=== PATIENT | female | born 1990 | race Caucasian/White ===

== ENCOUNTER 2024-07-21 07:30 | Outpatient (RCR) | payer OTHER, SELFPAY ==
--- NOTE | 2024-01-14 16:29 | PT.OIE ---
Current Diagnoses Unspecified dyspareunia (01/14/24) Past Surgical History (Last Updated 07/27/23 @ 21:03 by Marva Garcia) Anesthesia [place] teeth removed (~09/2009) Visit Care Team Role Provider Type Tara Bernal DO Attending Provider Non-Staff Family Provider Primary Care Provider Referring Provider Specialty: Family Practice Address: [address] [place] [address], [place], [address] Fax: Email: Physical Therapy Initial Evaluation PT-OP-A Visit Information Start: 01/11/24 17:27 Freq: Status: Active Protocol: Document 01/14/24 08:20 LRN (Rec: 01/14/24 09:02 LRN [id number]) Out-Patient Physical Therapy Visit Information Visit Information Visit Type Initial Evaluation Visit Start Time 08:20 Visit Stop Time 08:55 Visit Number 11/09 Evaluation Information Evaluation Date 01/14/24 PT-OP-B Current Condition Start: 01/11/24 17:27 Freq: Status: Active Protocol: Document 01/14/24 08:20 LRN (Rec: 01/14/24 09:02 LRN [id number]) Current Condition History of Current Condition Onset Date 2 yrs ago Current Complaints Painful intercourse. History of Current Condition Pain during intercourse with spouse. Pt had no prior history of intercourse before . Has referral to see gyno Dr. Marrero and was told ms needing to relax. 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 Prior Treatments and Tests None Developmental History Developmental History None Treatment Goals Patient/Caregiver Goals Pt goal with therapy: No pain with intercourse. Pt agreeable to a HEP and self care education. Personal Factors Other Personal Factors That May Effect None. Therapy/Recovery PT-OP-C Subjective Start: 01/11/24 17:27 Freq: Status: Active Protocol: Document 01/14/24 08:20 LRN (Rec: 01/14/24 09:02 LRN [id number]) Patient Questionnaires Pelvic Pain and Urgency/Frequency Patient Symptom Scale Pelvic Pain Score 8 PT-OP-I Pelvic Floor Start: 01/11/24 17:27 Freq: Status: Active Protocol: Document 01/14/24 08:20 LRN (Rec: 01/14/24 09:02 LRN [id number]) Pelvic Floor Assessment Urine Other Urinary Symptoms None Bowel Bowel Movement Frequency 1/day [place] Stool Chart Comments Type 4 Pelvic Clock Pelvic Clock 12-3 Tenderness,Tightness Pelvic Clock 3-6 Tenderness,Tightness Pelvic Clock 6-9 Tenderness,Tightness Pelvic Clock 9-12 Tenderness,Tightness Pelvic Clock Other Redness at entire labia minora Prolapse Prolapse Comments Pt not able to tolerate digital palpation to assess for prolapse. Perineal Descent Resting Absent Bearing Absent Comments Pelvic Floor Comments Posterior PF assesment per anal sphincter palpation: Quick Contractions: 2 reps prior to fatigue. Long Hold contractions: Muscle endurance 2 secs. PT-OP-J Posture/Palpation/Skin Start: 01/11/24 17:27 Freq: Status: Active Protocol: Document 01/14/24 08:20 LRN (Rec: 01/14/24 09:02 LRN [id number]) Posture Evaluation Position Standing Head/C-Spine Posture Neutral Position T-Spine Posture Neutral L-Spine Posture Neutral Shoulder Posture Neutral Arm Posture (L) Neutral,(R) Neutral Pelvis Posture Anteriorly Tilted Weight Distribution Balanced Knee Posture (L) Neutral,(R) Neutral PT-OP-K Range of Motion Start: 01/11/24 17:27 Freq: Status: Active Protocol: Document 01/14/24 08:20 LRN (Rec: 01/14/24 09:02 LRN [id number]) Lumbar Spine Range of Motion Lumbar Spine Active Degrees Testing Position Standing Flexion 83 Extension 20 Rotation Left 20 Rotation Right 20 Lateral Flexion Left 30 Lateral Flexion Right 25 ROM Limitations Soft Tissue Tightness Hip Goniometric Range of Motion Hip Right Passive Testing Position Supine Abduction 30 Internal Rotation 25 External Rotation 45 Left Passive Testing Position Supine Abduction 25 Internal Rotation 10 External Rotation 50 Comments decreased active IR PT-OP-M Strength Start: 01/11/24 17:27 Freq: Status: Active Protocol: Document 01/14/24 08:20 LRN (Rec: 01/14/24 09:02 LRN [id number]) Trunk Strength Trunk Manual Muscle Testing Core Stabilization Mild trunk rotation weakness demonstrated with LE MMT. Hip Strength Hip Manual Muscle Testing Right Comments LE strength is 5/5 Left External Rotation 4+ Good+ Comments LE strength is 5/5 except as indicated above. PT-OP-Q Treatments Start: 01/11/24 17:27 Freq: Status: Active Protocol: Document 01/14/24 08:20 LRN (Rec: 01/14/24 09:02 LRN [id number]) Therapeutic Exercises Supine Exercises Lateral Hip stretch Supine Exercise Name Lateral Hip stretch Side left Reps/Minutes 1' Piriformis stretch Supine Exercise Name ankle over knee>ktc and knee to opp shoulder. Side left Reps/Minutes 1' Self-Care/Home Management Treatment Education Patient Education Home Exercise Program Other Education Discussed results of evaluation, attendance compliance, goals, and plan of care (POC). Pt agreeable to attendance compliance, goals and POC. Activities Self-Care/Home Management Activities Issued & reviewed HEP: Diaphragmatic Breathing for relaxatioin and Hip stretches: (L>R) Piriformis and lateral hip. PT-OP-T Assessment and Plan Start: 01/11/24 17:27 Freq: Status: Active Protocol: Document 01/14/24 08:20 LRN (Rec: 01/14/24 09:02 LRN [id number]) Physical Therapy Assessment Rehab Potential Rehabilitation Potential Good Evaluation Complexity Number of Personal Factors/Comorbidities 0 Number of Body Systems Impaired 4 or More Clinical Presentation at Evaluation Evolving Impairments Impairments Activity Tolerance,Pain,ROM, Soft Tissue Mobility,Strength, Transfers Goals Three Impairment Decreased posterior PF endurance of anal sphincter contraction (2 sec hold) Short Term Goal (STG) Pt will be educated in posterior PF strengthening ex' s to hold an anal sphincter contraction 5 secs prior to fatigue. STG Duration 4 wks-02/11/24 [place] Operator Goal (LTG) Pt will be able to hold an anal sphincter contraction 10 secs prior to fatigue LTG Duration 11 wks-03/31/24 Two Impairment Pain with intercourse Short Term Goal (STG) And will demonstrate awareness of how to relax her PF with deep breathing. STG Duration 3 wks-02/04/24 Shelter Goal (LTG) Pt will be able to tolerate intercourse with spouse with minimal to no pain. LTG Duration 11 wks-03/31/24 One Impairment Pt lacks appropriate self care HEP Short Term Goal (STG) Pt will be educated in genital and vulvar self care. STG Duration 2 wks-01/28/24 Shelter Goal (LTG) Pt will be independent in appropriate self care HEP of PF, hip & trunk stretches, and she will be able to self stretch her PF using a wand. LTG Duration 11 wks-03/31/24 Assessment Summary Assessment Pt is a 33 yo female with an anterior PF, hip (hamstring, AD's & rotators IR>ER) tightness and lumbar tension. Anatomically she has a very small vaginal opening. With tightness of her anterior PF she also demonstrates weakness of her posterior PF muscles ( quick and long holding muscles . Pt has redness of labial minor with tenderness that may need to be addressed if she continues to have pain with intercourse after PF stretching is achieved. The pt will benefit from skilled physical therapy to achieve her above stated goals. Physical Therapy Plan Frequency and Duration Frequency of Treatment 1x/Week Duration of treatment (weeks) 11 Plan of Care Start Date 01/14/24 Plan of Care End Date 03/31/24 Therapeutic Interventions Therapeutic Interventions Home Exercise Program,Manual Therapy,Neuromuscular Re- education,Self-Care/Home Management,Soft Tissue Mobilization,Therapeutic Activities,Therapeutic Exercises Next Visit Focus/Plan Next Note Type Treatment Note Next Visit Plan Review hip stretches and deep breathing (for ms relaxation) issued. Start HEP: Manual therapy to stretch PF and issue wand for self stretch and HEP. PF stretching ex ( Happy Baby Pose, child's pose) . Hip stretches: Hip Adductors (L), Trunk stretches : yulia rot & R SB. Deep breathing. Transfer training breath for PF relaxation. Education in vulvar/genital care and body mechanics for PF relaxation. POC: Pt education, Manual therapy (hips, PF). Biofeedback if able to stretch enough to santos with vaginal sensor. Therapeutic Exercises, Therapeutic Activities
--- NOTE | 2024-01-14 16:29 | PT.OPPOC ---
Physical, Occupational & Speech Therapy At [facility] Current Diagnoses Unspecified dyspareunia (01/14/24) Visit Care Team Role Provider Type Tara Bernal DO Attending Provider Non-Staff Family Provider Primary Care Provider Referring Provider Specialty: Family Practice Address: [address] [place] [address], [place], [address] Fax: Email: Plan Of Care PT-OP-T Assessment and Plan Start: 01/11/24 17:27 Freq: Status: Active Protocol: Document 01/14/24 08:20 LRN (Rec: 01/14/24 09:02 LRN [id number]) Physical Therapy Assessment Rehab Potential Rehabilitation Potential Good Evaluation Complexity Number of Personal Factors/Comorbidities 0 Number of Body Systems Impaired 4 or More Clinical Presentation at Evaluation Evolving Impairments Impairments Activity Tolerance,Pain,ROM, Soft Tissue Mobility,Strength, Transfers Goals Three Impairment Decreased posterior PF endurance of anal sphincter contraction (2 sec hold) Short Term Goal (STG) Pt will be educated in posterior PF strengthening ex' s to hold an anal sphincter contraction 5 secs prior to fatigue. STG Duration 4 wks-02/11/24 Group Home Goal (LTG) Pt will be able to hold an anal sphincter contraction 10 secs prior to fatigue LTG Duration 11 wks-03/31/24 Two Impairment Pain with intercourse Short Term Goal (STG) And will demonstrate awareness of how to relax her PF with deep breathing. STG Duration 3 wks-02/04/24 Oncology Account Specialist Goal (LTG) Pt will be able to tolerate intercourse with spouse with minimal to no pain. LTG Duration 11 wks-03/31/24 One Impairment Pt lacks appropriate self care HEP Short Term Goal (STG) Pt will be educated in genital and vulvar self care. STG Duration 2 wks-01/28/24 Group Home Goal (LTG) Pt will be independent in appropriate self care HEP of PF, hip & trunk stretches, and she will be able to self stretch her PF using a wand. LTG Duration 11 wks-03/31/24 Assessment Summary Assessment Pt is a 33 yo female with an anterior PF, hip (hamstring, AD's & rotators IR>ER) tightness and lumbar tension. Anatomically she has a very small vaginal opening. With tightness of her anterior PF she also demonstrates weakness of her posterior PF muscles ( quick and long holding muscles . Pt has redness of labial minor with tenderness that may need to be addressed if she continues to have pain with intercourse after PF stretching is achieved. The pt will benefit from skilled physical therapy to achieve her above stated goals. Physical Therapy Plan Frequency and Duration Frequency of Treatment 1x/Week Duration of treatment (weeks) 11 Plan of Care Start Date 01/14/24 Plan of Care End Date 03/31/24 Therapeutic Interventions Therapeutic Interventions Home Exercise Program,Manual Therapy,Neuromuscular Re- education,Self-Care/Home Management,Soft Tissue Mobilization,Therapeutic Activities,Therapeutic Exercises Next Visit Focus/Plan Next Note Type Treatment Note Next Visit Plan Review hip stretches and deep breathing (for ms relaxation) issued. Start HEP: Manual therapy to stretch PF and issue wand for self stretch and HEP. PF stretching ex ( Happy Baby Pose, child's pose) . Hip stretches: Hip Adductors (L), Trunk stretches : yulia rot & R SB. Deep breathing. Transfer training breath for PF relaxation. Education in vulvar/genital care and body mechanics for PF relaxation. POC: Pt education, Manual therapy (hips, PF). Biofeedback if able to stretch enough to santos with vaginal sensor. Therapeutic Exercises, Therapeutic Activities Plan of Care Dates Plan of Care Start Date 01/14/24 Plan of Care End Date 03/31/24 Electronically Signed by: Zenobia Mulligan, PT 01/14/24 1527 If you are in agreement with this Plan of Care, please return a signed and dated copy. I have reviewed this Plan of Care and certify that the skilled therapy services above are required to meet the patient?s needs. Physician Signature Date Printed Name and Credentials Clinical Instructor Signature Printed Name and Credentials
--- NOTE | 2024-01-14 16:34 | PT.OPPOC ---
Physical, Occupational & Speech Therapy At [facility] Current Diagnoses Unspecified dyspareunia (01/14/24) Visit Care Team Role Provider Type Tara Bernal DO Attending Provider Non-Staff Family Provider Primary Care Provider Referring Provider Specialty: Family Practice Address: [address] [place] [address], [place], [address] Fax: Email: Plan Of Care PT-OP-T Assessment and Plan Start: 01/11/24 17:27 Freq: Status: Active Protocol: Document 01/14/24 08:20 LRN (Rec: 01/14/24 09:02 LRN [id number]) Physical Therapy Assessment Rehab Potential Rehabilitation Potential Good Evaluation Complexity Number of Personal Factors/Comorbidities 0 Number of Body Systems Impaired 4 or More Clinical Presentation at Evaluation Evolving Impairments Impairments Activity Tolerance,Pain,ROM, Soft Tissue Mobility,Strength, Transfers Goals Three Impairment Decreased posterior PF endurance of anal sphincter contraction (2 sec hold) Short Term Goal (STG) Pt will be educated in posterior PF strengthening ex' s to hold an anal sphincter contraction 5 secs prior to fatigue. STG Duration 4 wks-02/11/24 Assisted Goal (LTG) Pt will be able to hold an anal sphincter contraction 10 secs prior to fatigue LTG Duration 11 wks-03/31/24 Two Impairment Pain with intercourse Short Term Goal (STG) And will demonstrate awareness of how to relax her PF with deep breathing. STG Duration 3 wks-02/04/24 Supervisor Stone Goal (LTG) Pt will be able to tolerate intercourse with spouse with minimal to no pain. LTG Duration 11 wks-03/31/24 One Impairment Pt lacks appropriate self care HEP Short Term Goal (STG) Pt will be educated in genital and vulvar self care. STG Duration 2 wks-01/28/24 Assisted Goal (LTG) Pt will be independent in appropriate self care HEP of PF, hip & trunk stretches, and she will be able to self stretch her PF using a wand. LTG Duration 11 wks-03/31/24 Assessment Summary Assessment Pt is a 33 yo female with an anterior PF, hip (hamstring, AD's & rotators IR>ER) tightness and lumbar tension. Anatomically she has a very small vaginal opening. With tightness of her anterior PF she also demonstrates weakness of her posterior PF muscles ( quick and long holding muscles . Pt has redness of labial minor with tenderness that may need to be addressed if she continues to have pain with intercourse after PF stretching is achieved. The pt will benefit from skilled physical therapy to achieve her above stated goals. Physical Therapy Plan Frequency and Duration Frequency of Treatment 1x/Week Duration of treatment (weeks) 11 Plan of Care Start Date 01/14/24 Plan of Care End Date 03/31/24 Therapeutic Interventions Therapeutic Interventions Home Exercise Program,Manual Therapy,Neuromuscular Re- education,Self-Care/Home Management,Soft Tissue Mobilization,Therapeutic Activities,Therapeutic Exercises Next Visit Focus/Plan Next Note Type Treatment Note Next Visit Plan Review hip stretches and deep breathing (for ms relaxation) issued. Start HEP: Manual therapy to stretch PF and issue wand for self stretch and HEP. PF stretching ex ( Happy Baby Pose, child's pose) . Hip stretches: Hip Adductors (L), Trunk stretches : yulai rot & R SB. Deep breathing. Transfer training breath for PF relaxation. Education in vulvar/genital care and body mechanics for PF relaxation. POC: Pt education, Manual therapy (hips, PF). Biofeedback if able to stretch enough to santos with vaginal sensor. Therapeutic Exercises, Therapeutic Activities Plan of Care Dates Plan of Care Start Date 01/14/24 Plan of Care End Date 03/31/24 Electronically Signed by: Zenobia Mulligan, PT 01/15/24 [id number] If you are in agreement with this Plan of Care, please return a signed and dated copy. I have reviewed this Plan of Care and certify that the skilled therapy services above are required to meet the patient?s needs. Physician Signature Date Printed Name and Credentials Clinical Instructor Signature Printed Name and Credentials
--- NOTE | 2024-01-14 16:34 | PT.OIE ---
Current Diagnoses Unspecified dyspareunia (01/14/24) Past Surgical History (Last Updated 07/27/23 @ 21:03 by Marva Garcia) Anesthesia [place] teeth removed (~09/2009) Visit Care Team Role Provider Type Tara Bernal DO Attending Provider Non-Staff Family Provider Primary Care Provider Referring Provider Specialty: Family Practice Address: [address] [place] [address], [place], [address] Fax: Email: Physical Therapy Initial Evaluation PT-OP-A Visit Information Start: 01/11/24 17:27 Freq: Status: Active Protocol: Document 01/14/24 08:20 LRN (Rec: 01/14/24 09:02 LRN [id number]) Out-Patient Physical Therapy Visit Information Visit Information Visit Type Initial Evaluation Visit Start Time 08:20 Visit Stop Time 08:55 Visit Number 11/09 Evaluation Information Evaluation Date 01/14/24 PT-OP-B Current Condition Start: 01/11/24 17:27 Freq: Status: Active Protocol: Document 01/14/24 08:20 LRN (Rec: 01/14/24 09:02 LRN [id number]) Current Condition History of Current Condition Onset Date 2 yrs ago Current Complaints Painful intercourse. History of Current Condition Pain during intercourse with spouse. Pt had no prior history of intercourse before . Has referral to see gyno Dr. Marrero and was told ms needing to relax. 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 Prior Treatments and Tests None Developmental History Developmental History None Treatment Goals Patient/Caregiver Goals Pt goal with therapy: No pain with intercourse. Pt agreeable to a HEP and self care education. Personal Factors Other Personal Factors That May Effect None. Therapy/Recovery PT-OP-C Subjective Start: 01/11/24 17:27 Freq: Status: Active Protocol: Document 01/14/24 08:20 LRN (Rec: 01/14/24 09:02 LRN [id number]) Patient Questionnaires Pelvic Pain and Urgency/Frequency Patient Symptom Scale Pelvic Pain Score 8 PT-OP-I Pelvic Floor Start: 01/11/24 17:27 Freq: Status: Active Protocol: Document 01/14/24 08:20 LRN (Rec: 01/14/24 09:02 LRN [id number]) Pelvic Floor Assessment Urine Other Urinary Symptoms None Bowel Bowel Movement Frequency 1/day [place] Stool Chart Comments Type 4 Pelvic Clock Pelvic Clock 12-3 Tenderness,Tightness Pelvic Clock 3-6 Tenderness,Tightness Pelvic Clock 6-9 Tenderness,Tightness Pelvic Clock 9-12 Tenderness,Tightness Pelvic Clock Other Redness at entire labia minora Prolapse Prolapse Comments Pt not able to tolerate digital palpation to assess for prolapse. Perineal Descent Resting Absent Bearing Absent Comments Pelvic Floor Comments Posterior PF assesment per anal sphincter palpation: Quick Contractions: 2 reps prior to fatigue. Long Hold contractions: Muscle endurance 2 secs. PT-OP-J Posture/Palpation/Skin Start: 01/11/24 17:27 Freq: Status: Active Protocol: Document 01/14/24 08:20 LRN (Rec: 01/14/24 09:02 LRN [id number]) Posture Evaluation Position Standing Head/C-Spine Posture Neutral Position T-Spine Posture Neutral L-Spine Posture Neutral Shoulder Posture Neutral Arm Posture (L) Neutral,(R) Neutral Pelvis Posture Anteriorly Tilted Weight Distribution Balanced Knee Posture (L) Neutral,(R) Neutral PT-OP-K Range of Motion Start: 01/11/24 17:27 Freq: Status: Active Protocol: Document 01/14/24 08:20 LRN (Rec: 01/14/24 09:02 LRN [id number]) Lumbar Spine Range of Motion Lumbar Spine Active Degrees Testing Position Standing Flexion 83 Extension 20 Rotation Left 20 Rotation Right 20 Lateral Flexion Left 30 Lateral Flexion Right 25 ROM Limitations Soft Tissue Tightness Hip Goniometric Range of Motion Hip Right Passive Testing Position Supine Abduction 30 Internal Rotation 25 External Rotation 45 Left Passive Testing Position Supine Abduction 25 Internal Rotation 10 External Rotation 50 Comments decreased active IR PT-OP-M Strength Start: 01/11/24 17:27 Freq: Status: Active Protocol: Document 01/14/24 08:20 LRN (Rec: 01/14/24 09:02 LRN [id number]) Trunk Strength Trunk Manual Muscle Testing Core Stabilization Mild trunk rotation weakness demonstrated with LE MMT. Hip Strength Hip Manual Muscle Testing Right Comments LE strength is 5/5 Left External Rotation 4+ Good+ Comments LE strength is 5/5 except as indicated above. PT-OP-Q Treatments Start: 01/11/24 17:27 Freq: Status: Active Protocol: Document 01/14/24 08:20 LRN (Rec: 01/14/24 09:02 LRN [id number]) Therapeutic Exercises Supine Exercises Lateral Hip stretch Supine Exercise Name Lateral Hip stretch Side left Reps/Minutes 1' Piriformis stretch Supine Exercise Name ankle over knee>ktc and knee to opp shoulder. Side left Reps/Minutes 1' Self-Care/Home Management Treatment Education Patient Education Home Exercise Program Other Education Discussed results of evaluation, attendance compliance, goals, and plan of care (POC). Pt agreeable to attendance compliance, goals and POC. Activities Self-Care/Home Management Activities Issued & reviewed HEP: Diaphragmatic Breathing for relaxatioin and Hip stretches: (L>R) Piriformis and lateral hip. PT-OP-T Assessment and Plan Start: 01/11/24 17:27 Freq: Status: Active Protocol: Document 01/14/24 08:20 LRN (Rec: 01/14/24 09:02 LRN [id number]) Physical Therapy Assessment Rehab Potential Rehabilitation Potential Good Evaluation Complexity Number of Personal Factors/Comorbidities 0 Number of Body Systems Impaired 4 or More Clinical Presentation at Evaluation Evolving Impairments Impairments Activity Tolerance,Pain,ROM, Soft Tissue Mobility,Strength, Transfers Goals Three Impairment Decreased posterior PF endurance of anal sphincter contraction (2 sec hold) Short Term Goal (STG) Pt will be educated in posterior PF strengthening ex' s to hold an anal sphincter contraction 5 secs prior to fatigue. STG Duration 4 wks-02/11/24 Special Needs Child Caregiver Goal (LTG) Pt will be able to hold an anal sphincter contraction 10 secs prior to fatigue LTG Duration 11 wks-03/31/24 Two Impairment Pain with intercourse Short Term Goal (STG) And will demonstrate awareness of how to relax her PF with deep breathing. STG Duration 3 wks-02/04/24 Fpc Goal (LTG) Pt will be able to tolerate intercourse with spouse with minimal to no pain. LTG Duration 11 wks-03/31/24 One Impairment Pt lacks appropriate self care HEP Short Term Goal (STG) Pt will be educated in genital and vulvar self care. STG Duration 2 wks-01/28/24 Fpc Goal (LTG) Pt will be independent in appropriate self care HEP of PF, hip & trunk stretches, and she will be able to self stretch her PF using a wand. LTG Duration 11 wks-03/31/24 Assessment Summary Assessment Pt is a 33 yo female with an anterior PF, hip (hamstring, AD's & rotators IR>ER) tightness and lumbar tension. Anatomically she has a very small vaginal opening. With tightness of her anterior PF she also demonstrates weakness of her posterior PF muscles ( quick and long holding muscles . Pt has redness of labial minor with tenderness that may need to be addressed if she continues to have pain with intercourse after PF stretching is achieved. The pt will benefit from skilled physical therapy to achieve her above stated goals. Physical Therapy Plan Frequency and Duration Frequency of Treatment 1x/Week Duration of treatment (weeks) 11 Plan of Care Start Date 01/14/24 Plan of Care End Date 03/31/24 Therapeutic Interventions Therapeutic Interventions Home Exercise Program,Manual Therapy,Neuromuscular Re- education,Self-Care/Home Management,Soft Tissue Mobilization,Therapeutic Activities,Therapeutic Exercises Next Visit Focus/Plan Next Note Type Treatment Note Next Visit Plan Review hip stretches and deep breathing (for ms relaxation) issued. Start HEP: Manual therapy to stretch PF and issue wand for self stretch and HEP. PF stretching ex ( Happy Baby Pose, child's pose) . Hip stretches: Hip Adductors (L), Trunk stretches : yulia rot & R SB. Deep breathing. Transfer training breath for PF relaxation. Education in vulvar/genital care and body mechanics for PF relaxation. POC: Pt education, Manual therapy (hips, PF). Biofeedback if able to stretch enough to santos with vaginal sensor. Therapeutic Exercises, Therapeutic Activities
--- NOTE | 2024-01-21 16:28 | PT.OTN ---
Current Diagnoses Unspecified dyspareunia (01/21/24) Physical Therapy Treatment Note PT-OP-A Visit Information Start: 01/11/24 17:27 Freq: Status: Active Protocol: Document 01/21/24 08:17 LRN (Rec: 01/21/24 09:03 LRN [id number]) Out-Patient Physical Therapy Visit Information Visit Information Visit Type Initial Evaluation Visit Start Time 08:17 Visit Stop Time 09:00 Visit Number 12/10 Evaluation Information Evaluation Date 01/14/24 Precautions Precautions None PT-OP-B Current Condition Start: 01/11/24 17:27 Freq: Status: Active Protocol: Document 01/14/24 08:20 LRN (Rec: 01/14/24 09:02 LRN [id number]) Current Condition History of Current Condition Onset Date 2 yrs ago Current Complaints Painful intercourse. History of Current Condition Pain during intercourse with spouse. Pt had no prior history of intercourse before marrage. Has referral to see gyno Dr. Marrero and was told ms needing to relax. 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 Prior Treatments and Tests None Developmental History Developmental History None Treatment Goals Patient/Caregiver Goals Pt goal with therapy: No pain with intercourse. Pt agreeable to a HEP and self care education. Personal Factors Other Personal Factors That May Effect None. Therapy/Recovery PT-OP-C Subjective Start: 01/11/24 17:27 Freq: Status: Active Protocol: Document 01/21/24 08:17 LRN (Rec: 01/21/24 09:03 LRN [id number]) OP-PT Subjective Patient Comments Patient Comments States all is going well. PT-OP-I Pelvic Floor Start: 01/11/24 17:27 Freq: Status: Active Protocol: Document 01/14/24 08:20 LRN (Rec: 01/14/24 09:02 LRN [id number]) Pelvic Floor Assessment Urine Other Urinary Symptoms None Bowel Bowel Movement Frequency 1/day [place] Stool Chart Comments Type 4 Pelvic Clock Pelvic Clock 12-3 Tenderness,Tightness Pelvic Clock 3-6 Tenderness,Tightness Pelvic Clock 6-9 Tenderness,Tightness Pelvic Clock 9-12 Tenderness,Tightness Pelvic Clock Other Redness at entire labia minora Prolapse Prolapse Comments Pt not able to tolerate digital palpation to assess for prolapse. Perineal Descent Resting Absent Bearing Absent Comments Pelvic Floor Comments Posterior PF assesment per anal sphincter palpation: Quick Contractions: 2 reps prior to fatigue. Long Hold contractions: Muscle endurance 2 secs. PT-OP-J Posture/Palpation/Skin Start: 01/11/24 17:27 Freq: Status: Active Protocol: Document 01/14/24 08:20 LRN (Rec: 01/14/24 09:02 LRN [id number]) Posture Evaluation Position Standing Head/C-Spine Posture Neutral Position T-Spine Posture Neutral L-Spine Posture Neutral Shoulder Posture Neutral Arm Posture (L) Neutral,(R) Neutral Pelvis Posture Anteriorly Tilted Weight Distribution Balanced Knee Posture (L) Neutral,(R) Neutral PT-OP-K Range of Motion Start: 01/11/24 17:27 Freq: Status: Active Protocol: Document 01/14/24 08:20 LRN (Rec: 01/14/24 09:02 LRN [id number]) Lumbar Spine Range of Motion Lumbar Spine Active Degrees Testing Position Standing Flexion 83 Extension 20 Rotation Left 20 Rotation Right 20 Lateral Flexion Left 30 Lateral Flexion Right 25 ROM Limitations Soft Tissue Tightness Hip Goniometric Range of Motion Hip Right Passive Testing Position Supine Abduction 30 Internal Rotation 25 External Rotation 45 Left Passive Testing Position Supine Abduction 25 Internal Rotation 10 External Rotation 50 Comments decreased active IR PT-OP-M Strength Start: 01/11/24 17:27 Freq: Status: Active Protocol: Document 01/14/24 08:20 LRN (Rec: 01/14/24 09:02 LRN [id number]) Trunk Strength Trunk Manual Muscle Testing Core Stabilization Mild trunk rotation weakness demonstrated with LE MMT. Hip Strength Hip Manual Muscle Testing Right Comments LE strength is 5/5 Left External Rotation 4+ Good+ Comments LE strength is 5/5 except as indicated above. PT-OP-Q Treatments Start: 01/11/24 17:27 Freq: Status: Active Protocol: Document 01/21/24 08:17 LRN (Rec: 01/21/24 09:03 LRN [id number]) Therapeutic Exercises Supine Exercises Hamstring stretch Supine Exercise Name V- stretch with legs on plinth (wall position). Side bilateral Reps/Minutes 2' PF stretch Supine Exercise Name With knees flexed with legs on plinth (wall position). Side bilateral Reps/Minutes 3' Happy Baby Pose Supine Exercise Name Happy Baby Pose: Knees flexed and knee mildly straightened. Reps/Minutes 4' Comments Extra time to determine best position to avoid anterior hip pain. Cued PPT Deep Breathing Supine Exercise Name Deep Breathing Reps/Minutes 3' Comments Extra time for training, pt was doing opp of pattern. Cued hand placments Lateral Hip stretch Supine Exercise Name Lateral Hip stretch Side left Reps/Minutes 2' Comments Cued to focus on L side, extra time to review stretch. Piriformis stretch Supine Exercise Name ankle over knee>ktc and knee to opp shoulder. Side left Reps/Minutes 2' Comments Extra time to review stretch Manual Therapy Treatment Soft Tissue Mobilization PF stretching Body Location PF Stretching: opening of vaginal canal to inner PF. Body Position Supine Comments Pt I/S in how to stretch PF with wand as the same technique for trP release. Issued XS wand and TBand for around knees to relax hips. Neuro Re-Education Treatment Coordination Activities Breathing w/PF stretch Details Hooklie: Inhale w/PF slight push stretch Equipment TB around legs to relax hips. Reps/Duration 9' PT-OP-T Assessment and Plan Start: 01/11/24 17:27 Freq: Status: Active Protocol: Document 01/21/24 08:17 LRN (Rec: 01/21/24 09:03 LRN [id number]) Physical Therapy Assessment Goals Three Impairment Decreased posterior PF endurance of anal sphincter contraction (2 sec hold) Short Term Goal (STG) Pt will be educated in posterior PF strengthening ex' s to hold an anal sphincter contraction 5 secs prior to fatigue. STG Duration 4 wks-02/11/24 [facility] Goal (LTG) Pt will be able to hold an anal sphincter contraction 10 secs prior to fatigue LTG Duration 11 wks-03/31/24 Two Impairment Pain with intercourse Short Term Goal (STG) And will demonstrate awareness of how to relax her PF with deep breathing. 01/21/24: Training to relax PF with inhale of Deep Breathing. STG Duration 3 wks-02/04/24 progressed [facility] Goal (LTG) Pt will be able to tolerate intercourse with spouse with minimal to no pain. LTG Duration 11 wks-03/31/24 (01/21/24: MET GOAL) One Impairment Pt lacks appropriate self care HEP Short Term Goal (STG) Pt will be educated in genital and vulvar self care. STG Duration 2 wks-01/28/24 [place] Goal (LTG) Pt will be independent in appropriate self care HEP of PF, hip & trunk stretches, and she will be able to self stretch her PF using a wand. 01/21/24: Pt issued XS wand for home PF stretching, and instructed in deep breathing. LTG Duration 11 wks-03/31/24 progressed 01/21/24 Assessment Summary Assessment 33 yo female with an anterior PF & hip tightness, and lumbar tension. Anatomically she has a very small vaginal opening and pelvic anterior tilt. Good recall of HEP, but pt doing hip stretche on both sides stretching vs focus on tight side, therefore cued to focus on L side for a couple of weeks. Physical Therapy Plan Frequency and Duration Frequency of Treatment 1x/Week Duration of treatment (weeks) 11 Plan of Care Start Date 01/14/24 Plan of Care End Date 03/31/24 Next Visit Focus/Plan Next Note Type Treatment Note Next Visit Plan Review PF stretching with wand , hip stretches and deep breathing (for ms relaxation) issued. Review Deep breathing and transfer training breath for PF relaxation. Manual therapy for PF stretch. Start HEP: PF stretching ex ( child's pose). Posterior PF strengthening for endurance. Hip stretches: Hip Adductors ( L), Trunk stretches: yulia rot & R SB. Education in vulvar/ genital care and body mechanics for PF relaxation. POC: Pt education, Manual therapy (hips, PF). Biofeedback if able to stretch enough to santos with vaginal sensor. Therapeutic Exercises, Therapeutic Activities
--- NOTE | 2024-01-28 15:50 | PT.OTN ---
Current Diagnoses Unspecified dyspareunia (01/28/24) Physical Therapy Treatment Note PT-OP-A Visit Information Start: 01/11/24 17:27 Freq: Status: Active Protocol: Document 01/28/24 08:22 LRN (Rec: 01/28/24 08:58 LRN [id number]) Out-Patient Physical Therapy Visit Information Visit Information Visit Type Treatment Note Visit Start Time 08:22 Visit Stop Time 08:55 Visit Number 01/07 Evaluation Information Evaluation Date 01/14/24 Precautions Precautions None PT-OP-B Current Condition Start: 01/11/24 17:27 Freq: Status: Active Protocol: Document 01/14/24 08:20 LRN (Rec: 01/14/24 09:02 LRN [id number]) Current Condition History of Current Condition Onset Date 2 yrs ago Current Complaints Painful intercourse. History of Current Condition Pain during intercourse with spouse. Pt had no prior history of intercourse before marrage. Has referral to see gyno Dr. Marrero and was told ms needing to relax. 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 Prior Treatments and Tests None Developmental History Developmental History None Treatment Goals Patient/Caregiver Goals Pt goal with therapy: No pain with intercourse. Pt agreeable to a HEP and self care education. Personal Factors Other Personal Factors That May Effect None. Therapy/Recovery PT-OP-C Subjective Start: 01/11/24 17:27 Freq: Status: Active Protocol: Document 01/28/24 08:22 LRN (Rec: 01/28/24 08:58 LRN [id number]) OP-PT Subjective Patient Comments Patient Comments Late because puppy got loose. No changes. STates she tried stretching with the wand, but would like some training. PT-OP-I Pelvic Floor Start: 01/11/24 17:27 Freq: Status: Active Protocol: Document 01/14/24 08:20 LRN (Rec: 01/14/24 09:02 LRN [id number]) Pelvic Floor Assessment Urine Other Urinary Symptoms None Bowel Bowel Movement Frequency 1/day [place] Stool Chart Comments Type 4 Pelvic Clock Pelvic Clock 12-3 Tenderness,Tightness Pelvic Clock 3-6 Tenderness,Tightness Pelvic Clock 6-9 Tenderness,Tightness Pelvic Clock 9-12 Tenderness,Tightness Pelvic Clock Other Redness at entire labia minora Prolapse Prolapse Comments Pt not able to tolerate digital palpation to assess for prolapse. Perineal Descent Resting Absent Bearing Absent Comments Pelvic Floor Comments Posterior PF assesment per anal sphincter palpation: Quick Contractions: 2 reps prior to fatigue. Long Hold contractions: Muscle endurance 2 secs. PT-OP-J Posture/Palpation/Skin Start: 01/11/24 17:27 Freq: Status: Active Protocol: Document 01/14/24 08:20 LRN (Rec: 01/14/24 09:02 LRN [id number]) Posture Evaluation Position Standing Head/C-Spine Posture Neutral Position T-Spine Posture Neutral L-Spine Posture Neutral Shoulder Posture Neutral Arm Posture (L) Neutral,(R) Neutral Pelvis Posture Anteriorly Tilted Weight Distribution Balanced Knee Posture (L) Neutral,(R) Neutral PT-OP-K Range of Motion Start: 01/11/24 17:27 Freq: Status: Active Protocol: Document 01/14/24 08:20 LRN (Rec: 01/14/24 09:02 LRN [id number]) Lumbar Spine Range of Motion Lumbar Spine Active Degrees Testing Position Standing Flexion 83 Extension 20 Rotation Left 20 Rotation Right 20 Lateral Flexion Left 30 Lateral Flexion Right 25 ROM Limitations Soft Tissue Tightness Hip Goniometric Range of Motion Hip Right Passive Testing Position Supine Abduction 30 Internal Rotation 25 External Rotation 45 Left Passive Testing Position Supine Abduction 25 Internal Rotation 10 External Rotation 50 Comments decreased active IR PT-OP-M Strength Start: 01/11/24 17:27 Freq: Status: Active Protocol: Document 01/14/24 08:20 LRN (Rec: 01/14/24 09:02 LRN [id number]) Trunk Strength Trunk Manual Muscle Testing Core Stabilization Mild trunk rotation weakness demonstrated with LE MMT. Hip Strength Hip Manual Muscle Testing Right Comments LE strength is 5/5 Left External Rotation 4+ Good+ Comments LE strength is 5/5 except as indicated above. PT-OP-Q Treatments Start: 01/11/24 17:27 Freq: Status: Active Protocol: Document 01/28/24 08:22 LRN (Rec: 01/28/24 08:58 LRN [id number]) Manual Therapy Treatment Soft Tissue Mobilization PF stretching Body Location PF Stretchingx 2, opening of vaginal canal to inner PF around the PF clock Mobilization Type Manual Lymphatic Drainage Body Position Supine Comments Pt I/S in how to stretch PF with wand as the same technique for trP release. Pt stretched shallow, then with a little more pressure 2nd time around. Issued XS wand and TBand for around knees to relax hips. Pt shown different way to hold wand to prevent wrist fatigue , and use other hand to apply pressure. Self-Care/Home Management Treatment Education Patient Education Home Exercise Program Activities Self-Care/Home Management Activities HEP issued: Happy Baby Pose, Sphinx abdominal stretch and SL hip AD stretch. PT-OP-T Assessment and Plan Start: 01/11/24 17:27 Freq: Status: Active Protocol: Document 01/28/24 08:22 LRN (Rec: 01/28/24 08:58 LRN [id number]) Physical Therapy Assessment Goals Three Impairment Decreased posterior PF endurance of anal sphincter contraction (2 sec hold) Short Term Goal (STG) Pt will be educated in posterior PF strengthening ex' s to hold an anal sphincter contraction 5 secs prior to fatigue. STG Duration 4 wks-02/11/24 Limnology Teacher Goal (LTG) Pt will be able to hold an anal sphincter contraction 10 secs prior to fatigue LTG Duration 11 wks-03/31/24 Two Impairment Pain with intercourse Short Term Goal (STG) And will demonstrate awareness of how to relax her PF with deep breathing. 01/21/24: Training to relax PF with inhale of Deep Breathing. STG Duration 3 wks-02/04/24 progressed Limnology Teacher Goal (LTG) Pt will be able to tolerate intercourse with spouse with minimal to no pain. LTG Duration 11 wks-03/31/24 (01/21/24: MET GOAL) One Impairment Pt lacks appropriate self care HEP Short Term Goal (STG) Pt will be educated in genital and vulvar self care. STG Duration 2 wks-01/28/24 Limnology Teacher Goal (LTG) Pt will be independent in appropriate self care HEP of PF, hip & trunk stretches, and she will be able to self stretch her PF using a wand. 01/21/24: Pt issued XS wand for home PF stretching, and instructed in deep breathing. 01/28/24: HEP issued: Happy Baby Pose, Sphinx abdominal stretch and SL hip AD stretch. LTG Duration 11 wks-03/31/24 progressed 01/28/24 Assessment Summary Assessment 33 yo female with an anterior PF & hip tightness, and lumbar tension. Pt demonstrated good knowledge of PF self stretch. She was able to go around the clock in 5' both with shallow and a little deeper stretch w/wand. Hip tightness L>R. Physical Therapy Plan Frequency and Duration Frequency of Treatment 1x/Week Duration of treatment (weeks) 11 Plan of Care Start Date 01/14/24 Plan of Care End Date 03/31/24 Next Visit Focus/Plan Next Note Type Treatment Note Next Visit Plan Review new HEP stretches (I/S L>R) and deep breathing (for ms relaxation). Review transfers w/breath and breath w/PF relaxation. Manual therapy for PF stretch if needed. HEP: Add: PF stretching ex ( child's pose). Posterior PF strengthening for endurance. Hip stretches:, Trunk stretches: yulia rot & R SB. Education in vulvar/genital care and body mechanics for PF relaxation. POC: Pt education, Manual therapy (hips, PF). Biofeedback if able to stretch enough to santos with vaginal sensor. Therapeutic Exercises, Therapeutic Activities
--- NOTE | 2024-02-04 17:14 | PT.OTN ---
Current Diagnoses Unspecified dyspareunia (02/04/24) Physical Therapy Treatment Note PT-OP-A Visit Information Start: 01/11/24 17:27 Freq: Status: Active Protocol: Document 02/04/24 08:22 LRN (Rec: 02/04/24 09:04 LRN [id number]) Out-Patient Physical Therapy Visit Information Visit Information Visit Type Treatment Note Visit Start Time 08:23 Visit Stop Time 09:03 Visit Number 02/07 Evaluation Information Evaluation Date 01/14/24 Precautions Precautions None PT-OP-B Current Condition Start: 01/11/24 17:27 Freq: Status: Active Protocol: Document 01/14/24 08:20 LRN (Rec: 01/14/24 09:02 LRN [id number]) Current Condition History of Current Condition Onset Date 2 yrs ago Current Complaints Painful intercourse. History of Current Condition Pain during intercourse with spouse. Pt had no prior history of intercourse before marrage. Has referral to see gyno Dr. Marrero and was told ms needing to relax. 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 Prior Treatments and Tests None Developmental History Developmental History None Treatment Goals Patient/Caregiver Goals Pt goal with therapy: No pain with intercourse. Pt agreeable to a HEP and self care education. Personal Factors Other Personal Factors That May Effect None. Therapy/Recovery PT-OP-C Subjective Start: 01/11/24 17:27 Freq: Status: Active Protocol: Document 02/04/24 08:22 LRN (Rec: 02/04/24 09:04 LRN [id number]) OP-PT Subjective Patient Comments Patient Comments Did do stretching of PF with wand nightly. Sex was ok at shallow depth no pain, but painful at deep depth. PT-OP-I Pelvic Floor Start: 01/11/24 17:27 Freq: Status: Active Protocol: Document 01/14/24 08:20 LRN (Rec: 01/14/24 09:02 LRN [id number]) Pelvic Floor Assessment Urine Other Urinary Symptoms None Bowel Bowel Movement Frequency 1/day [place] Stool Chart Comments Type 4 Pelvic Clock Pelvic Clock 12-3 Tenderness,Tightness Pelvic Clock 3-6 Tenderness,Tightness Pelvic Clock 6-9 Tenderness,Tightness Pelvic Clock 9-12 Tenderness,Tightness Pelvic Clock Other Redness at entire labia minora Prolapse Prolapse Comments Pt not able to tolerate digital palpation to assess for prolapse. Perineal Descent Resting Absent Bearing Absent Comments Pelvic Floor Comments Posterior PF assesment per anal sphincter palpation: Quick Contractions: 2 reps prior to fatigue. Long Hold contractions: Muscle endurance 2 secs. PT-OP-J Posture/Palpation/Skin Start: 01/11/24 17:27 Freq: Status: Active Protocol: Document 01/14/24 08:20 LRN (Rec: 01/14/24 09:02 LRN [id number]) Posture Evaluation Position Standing Head/C-Spine Posture Neutral Position T-Spine Posture Neutral L-Spine Posture Neutral Shoulder Posture Neutral Arm Posture (L) Neutral,(R) Neutral Pelvis Posture Anteriorly Tilted Weight Distribution Balanced Knee Posture (L) Neutral,(R) Neutral PT-OP-K Range of Motion Start: 01/11/24 17:27 Freq: Status: Active Protocol: Document 01/14/24 08:20 LRN (Rec: 01/14/24 09:02 LRN [id number]) Lumbar Spine Range of Motion Lumbar Spine Active Degrees Testing Position Standing Flexion 83 Extension 20 Rotation Left 20 Rotation Right 20 Lateral Flexion Left 30 Lateral Flexion Right 25 ROM Limitations Soft Tissue Tightness Hip Goniometric Range of Motion Hip Right Passive Testing Position Supine Abduction 30 Internal Rotation 25 External Rotation 45 Left Passive Testing Position Supine Abduction 25 Internal Rotation 10 External Rotation 50 Comments decreased active IR PT-OP-M Strength Start: 01/11/24 17:27 Freq: Status: Active Protocol: Document 01/14/24 08:20 LRN (Rec: 01/14/24 09:02 LRN [id number]) Trunk Strength Trunk Manual Muscle Testing Core Stabilization Mild trunk rotation weakness demonstrated with LE MMT. Hip Strength Hip Manual Muscle Testing Right Comments LE strength is 5/5 Left External Rotation 4+ Good+ Comments LE strength is 5/5 except as indicated above. PT-OP-Q Treatments Start: 01/11/24 17:27 Freq: Status: Active Protocol: Document 02/04/24 08:22 LRN (Rec: 02/04/24 09:04 LRN [id number]) Therapeutic Exercises Supine Exercises Hamstring stretch Supine Exercise Name V- stretch with feet on wall . Side bilateral Reps/Minutes 2' Comments Positioning (toes to ceiling) & cued to deep breath. PF stretch Supine Exercise Name With knees flexed with feet on wall. Side bilateral Reps/Minutes 3' Happy Baby Pose Supine Exercise Name Happy Baby Pose: Knees flexed and knee mildly straightened. Reps/Minutes 4' Comments Cued PPT & deep breath with stretch Deep Breathing Supine Exercise Name Good Deep breathing throughout stretching. Lateral Hip stretch Supine Exercise Name Modified to knee to opp shldr - Piriformis stretch Side left Comments Groin pain caused modification to stretch Piriformis stretch Supine Exercise Name ankle over knee>ktc and knee to opp shoulder. Side left Reps/Minutes 2' Comments Extra time to review stretch Prone Exercises Sphinx Prone Exercise Name Abdominal stretch review. Reps/Minutes 1' Manual Therapy Treatment Soft Tissue Mobilization Blayne Posterior PF Body Location Blayne Posterior PF Mobilization Type Sustained Pressure,Trigger Point Release Body Position Happy Baby Resting Blayne Hip AD Body Location Blayne Hip AD Mobilization Type Strumming,Sustained Pressure, Trigger Point Release Body Position Happy Baby resting PF stretching Body Location PF Stretchingx 2, opening of vaginal canal to inner PF around the PF clock Mobilization Type Manual Lymphatic Drainage Body Position Supine Comments Pt review of technique for trP release. Pt stretched at vaginal entry around the PF Clock (most tender at 1, 4, 7, 9, 10). An inserting a little deeper, did general PF stretching. Pt I/S on opening labia to insert wand to start and start superficial since external PF has no tenderness. PT-OP-T Assessment and Plan Start: 01/11/24 17:27 Freq: Status: Active Protocol: Document 02/04/24 08:22 LRN (Rec: 02/04/24 09:04 LRN [id number]) Physical Therapy Assessment Goals Three Impairment Decreased posterior PF endurance of anal sphincter contraction (2 sec hold) Short Term Goal (STG) Pt will be educated in posterior PF strengthening ex' s to hold an anal sphincter contraction 5 secs prior to fatigue. STG Duration 4 wks-02/11/24 Sheet Tailer Goal (LTG) Pt will be able to hold an anal sphincter contraction 10 secs prior to fatigue LTG Duration 11 wks-03/31/24 Two Impairment Pain with intercourse Short Term Goal (STG) And will demonstrate awareness of how to relax her PF with deep breathing. 01/21/24: Training to relax PF with inhale of Deep Breathing. STG Duration 3 wks-02/04/24 progressed [place] Goal (LTG) Pt will be able to tolerate intercourse with spouse with minimal to no pain. LTG Duration 11 wks-03/31/24 (01/21/24: MET GOAL) One Impairment Pt lacks appropriate self care HEP Short Term Goal (STG) Pt will be educated in genital and vulvar self care. STG Duration 2 wks-01/28/24 [place] Goal (LTG) Pt will be independent in appropriate self care HEP of PF, hip & trunk stretches, and she will be able to self stretch her PF using a wand. 01/21/24: Pt issued XS wand for home PF stretching, and instructed in deep breathing. 01/28/24: HEP issued: Happy Baby Pose, Sphinx abdominal stretch and SL hip AD stretch. LTG Duration 11 wks-03/31/24 progressed 01/28/24 Assessment Summary Assessment 33 yo female with an anterior PF & hip tightness, and lumbar tension. + response to stretching with less pain on wand insertion. Good deep breathing mechanics. Pt very tight in posterior PF externally and abdomen. Further PF stretching needed. Physical Therapy Plan Frequency and Duration Frequency of Treatment 1x/Week Duration of treatment (weeks) 11 Plan of Care Start Date 01/14/24 Plan of Care End Date 03/31/24 Next Visit Focus/Plan Next Note Type Treatment Note Next Visit Plan Further review transfers w/ breath and breath w/PF relaxation. Manual internal PF stretch around clock and Posterior PF, if needed. HEP: Add: PF stretching ex ( child's pose). Posterior PF strengthening for endurance. Hip stretches:, Trunk stretches: blayne rot & R SB. Education in vulvar/genital care and body mechanics for PF relaxation. POC: Pt education, Manual therapy (hips, PF). Biofeedback if able to stretch enough to santos with vaginal sensor. Therapeutic Exercises, Therapeutic Activities
--- NOTE | 2024-02-11 12:20 | PT.OTN ---
Current Diagnoses Unspecified dyspareunia (02/11/24) Physical Therapy Treatment Note PT-OP-A Visit Information Start: 01/11/24 17:27 Freq: Status: Active Protocol: Document 02/11/24 08:19 LRN (Rec: 02/11/24 09:03 LRN [id number]) Out-Patient Physical Therapy Visit Information Visit Information Visit Type Treatment Note Visit Start Time 08:19 Visit Stop Time 09:00 Visit Number 02/07 Evaluation Information Evaluation Date 01/14/24 Precautions Precautions None PT-OP-B Current Condition Start: 01/11/24 17:27 Freq: Status: Active Protocol: Document 01/14/24 08:20 LRN (Rec: 01/14/24 09:02 LRN [id number]) Current Condition History of Current Condition Onset Date 2 yrs ago Current Complaints Painful intercourse. History of Current Condition Pain during intercourse with spouse. Pt had no prior history of intercourse before marrage. Has referral to see gyno Dr. Marrero and was told ms needing to relax. 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 Prior Treatments and Tests None Developmental History Developmental History None Treatment Goals Patient/Caregiver Goals Pt goal with therapy: No pain with intercourse. Pt agreeable to a HEP and self care education. Personal Factors Other Personal Factors That May Effect None. Therapy/Recovery PT-OP-C Subjective Start: 01/11/24 17:27 Freq: Status: Active Protocol: Document 02/11/24 08:19 LRN (Rec: 02/11/24 09:03 LRN [id number]) OP-PT Subjective Patient Comments Patient Comments Did wand stretch shallow & deep and then had intercourse with less pain. PT-OP-I Pelvic Floor Start: 01/11/24 17:27 Freq: Status: Active Protocol: Document 01/14/24 08:20 LRN (Rec: 01/14/24 09:02 LRN [id number]) Pelvic Floor Assessment Urine Other Urinary Symptoms None Bowel Bowel Movement Frequency 1/day [place] Stool Chart Comments Type 4 Pelvic Clock Pelvic Clock 12-3 Tenderness,Tightness Pelvic Clock 3-6 Tenderness,Tightness Pelvic Clock 6-9 Tenderness,Tightness Pelvic Clock 9-12 Tenderness,Tightness Pelvic Clock Other Redness at entire labia minora Prolapse Prolapse Comments Pt not able to tolerate digital palpation to assess for prolapse. Perineal Descent Resting Absent Bearing Absent Comments Pelvic Floor Comments Posterior PF assesment per anal sphincter palpation: Quick Contractions: 2 reps prior to fatigue. Long Hold contractions: Muscle endurance 2 secs. PT-OP-J Posture/Palpation/Skin Start: 01/11/24 17:27 Freq: Status: Active Protocol: Document 01/14/24 08:20 LRN (Rec: 01/14/24 09:02 LRN [id number]) Posture Evaluation Position Standing Head/C-Spine Posture Neutral Position T-Spine Posture Neutral L-Spine Posture Neutral Shoulder Posture Neutral Arm Posture (L) Neutral,(R) Neutral Pelvis Posture Anteriorly Tilted Weight Distribution Balanced Knee Posture (L) Neutral,(R) Neutral PT-OP-K Range of Motion Start: 01/11/24 17:27 Freq: Status: Active Protocol: Document 01/14/24 08:20 LRN (Rec: 01/14/24 09:02 LRN [id number]) Lumbar Spine Range of Motion Lumbar Spine Active Degrees Testing Position Standing Flexion 83 Extension 20 Rotation Left 20 Rotation Right 20 Lateral Flexion Left 30 Lateral Flexion Right 25 ROM Limitations Soft Tissue Tightness Hip Goniometric Range of Motion Hip Right Passive Testing Position Supine Abduction 30 Internal Rotation 25 External Rotation 45 Left Passive Testing Position Supine Abduction 25 Internal Rotation 10 External Rotation 50 Comments decreased active IR PT-OP-M Strength Start: 01/11/24 17:27 Freq: Status: Active Protocol: Document 01/14/24 08:20 LRN (Rec: 01/14/24 09:02 LRN [id number]) Trunk Strength Trunk Manual Muscle Testing Core Stabilization Mild trunk rotation weakness demonstrated with LE MMT. Hip Strength Hip Manual Muscle Testing Right Comments LE strength is 5/5 Left External Rotation 4+ Good+ Comments LE strength is 5/5 except as indicated above. PT-OP-Q Treatments Start: 01/11/24 17:27 Freq: Status: Active Protocol: Document 02/11/24 08:19 LRN (Rec: 02/11/24 09:03 LRN [id number]) Therapeutic Exercises Supine Exercises Hamstring stretch Supine Exercise Name V- stretch with feet on wall . Side bilateral Reps/Minutes 2' Comments Positioning (toes to ceiling) & cued to deep breath. Happy Baby Pose Supine Exercise Name Happy Baby Pose: Knees flexed and knee mildly straightened. Reps/Minutes 4' Comments Cued PPT & deep breath with stretch Piriformis stretch Supine Exercise Name ankle over knee>ktc and knee to opp shoulder. Side left Reps/Minutes 2' Comments Extra time to review stretch Sitting Exercises Trunk Rot stretch Sitting Exercise Name Looking over shdr, Hand behind , Hand on knee to assist rot Side bilateral Reps/Minutes 4' Comments Cued for sitting on sit bones, & breath SL Hip AD stretch Sitting Exercise Name Inhale-reverse Kegel; exhale relax PF Side bilateral Reps/Minutes 1' each Comments Cued breathing for PF stretch Standing Exercises Trunk SB stretch Standing Exercise Name R>L Side bilateral Comments Cued to equal WB through legs. Other Exercises Child' Pose Other Exercise Name Knee shdr width apart & knees out Reps/Minutes 4' Comments Cued to stretch PF with inhale and relax w/exhale Manual Therapy Treatment Soft Tissue Mobilization Blayne Posterior PF Body Location Blayne Posterior PF Mobilization Type Sustained Pressure,Trigger Point Release Body Position HB pose, prone, sup Self-Care/Home Management Treatment Activities Self-Care/Home Management Activities Issued HEP stretches: Sitting trunk rot & standing Trunk SB PT-OP-T Assessment and Plan Start: 01/11/24 17:27 Freq: Status: Active Protocol: Document 02/11/24 08:19 LRN (Rec: 02/11/24 09:03 LRN [id number]) Physical Therapy Assessment Goals Three Impairment Decreased posterior PF endurance of anal sphincter contraction (2 sec hold) Short Term Goal (STG) Pt will be educated in posterior PF strengthening ex' s to hold an anal sphincter contraction 5 secs prior to fatigue. STG Duration 4 wks-02/11/24 Halfway Goal (LTG) Pt will be able to hold an anal sphincter contraction 10 secs prior to fatigue LTG Duration 11 wks-03/31/24 Two Impairment Pain with intercourse Short Term Goal (STG) And will demonstrate awareness of how to relax her PF with deep breathing. 01/21/24: Training to relax PF with inhale of Deep Breathing. 02/11/24: Further training for reverse Kegel with breath during exercise. STG Duration 3 wks-02/04/24 progressed Nursery Manager Goal (LTG) Pt will be able to tolerate intercourse with spouse with minimal to no pain. 02/11/24: Less pain with intercourse if stretching PF first. LTG Duration 11 wks-03/31/24 progressing 02/11/24 One Impairment Pt lacks appropriate self care HEP Short Term Goal (STG) Pt will be educated in genital and vulvar self care. STG Duration 2 wks-01/28/24 Halfway Goal (LTG) Pt will be independent in appropriate self care HEP of PF, hip & trunk stretches, and she will be able to self stretch her PF using a wand. 01/21/24: Pt issued XS wand for home PF stretching, and instructed in deep breathing. 01/28/24: HEP issued: Happy Baby Pose, Sphinx abdominal stretch and SL hip AD stretch. 02/11/24: HEP: Trunk rot & SB stretch LTG Duration 11 wks-03/31/24 progressed 02/11/24 Assessment Summary Assessment 33 yo female with an anterior PF & hip tightness, and lumbar tension. + response to stretching with less pain on wand insertion. Tightness felt, R>L with trunk SB stretch. Physical Therapy Plan Frequency and Duration Frequency of Treatment 1x/Week Duration of treatment (weeks) 11 Plan of Care Start Date 01/14/24 Plan of Care End Date 03/31/24 Next Visit Focus/Plan Next Note Type Treatment Note Next Visit Plan Further review transfers w/ breath and breath w/PF relaxation, EDUCATION: body mechanics for PF relaxation. Review PF stretching ex ( child's pose). EXER: Posterior PF strengthening for endurance. Cont/assist: Hip & trunk stretches. MANUAL: if pt chooses - internal PF stretch around clock and Posterior PF. POC: Pt education, Manual therapy (hips, PF). Biofeedback if able to stretch enough to santos with vaginal sensor. Therapeutic Exercises, Therapeutic Activities
--- NOTE | 2024-02-18 12:20 | PT.OTN ---
Current Diagnoses Unspecified dyspareunia (02/18/24) Physical Therapy Treatment Note PT-OP-A Visit Information Start: 01/11/24 17:27 Freq: Status: Active Protocol: Document 02/18/24 08:16 LRN (Rec: 02/18/24 08:59 LRN [id number]) Out-Patient Physical Therapy Visit Information Visit Information Visit Type Treatment Note Visit Start Time 08:16 Visit Stop Time 08:57 Visit Number 02/07 PT-OP-B Current Condition Start: 01/11/24 17:27 Freq: Status: Active Protocol: Document 01/14/24 08:20 LRN (Rec: 01/14/24 09:02 LRN [id number]) Current Condition History of Current Condition Onset Date 2 yrs ago Current Complaints Painful intercourse. History of Current Condition Pain during intercourse with spouse. Pt had no prior history of intercourse before marrage. Has referral to see gyno Dr. Marrero and was told ms needing to relax. 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 Prior Treatments and Tests None Developmental History Developmental History None Treatment Goals Patient/Caregiver Goals Pt goal with therapy: No pain with intercourse. Pt agreeable to a HEP and self care education. Personal Factors Other Personal Factors That May Effect None. Therapy/Recovery PT-OP-C Subjective Start: 01/11/24 17:27 Freq: Status: Active Protocol: Document 02/18/24 08:16 LRN (Rec: 02/18/24 08:59 LRN [id number]) OP-PT Subjective Patient Comments Patient Comments States pain is only deep ( intercourse) but use of wand just causes more pain when going deep. PT-OP-I Pelvic Floor Start: 01/11/24 17:27 Freq: Status: Active Protocol: Document 01/14/24 08:20 LRN (Rec: 01/14/24 09:02 LRN [id number]) Pelvic Floor Assessment Urine Other Urinary Symptoms None Bowel Bowel Movement Frequency 1/day [place] Stool Chart Comments Type 4 Pelvic Clock Pelvic Clock 12-3 Tenderness,Tightness Pelvic Clock 3-6 Tenderness,Tightness Pelvic Clock 6-9 Tenderness,Tightness Pelvic Clock 9-12 Tenderness,Tightness Pelvic Clock Other Redness at entire labia minora Prolapse Prolapse Comments Pt not able to tolerate digital palpation to assess for prolapse. Perineal Descent Resting Absent Bearing Absent Comments Pelvic Floor Comments Posterior PF assesment per anal sphincter palpation: Quick Contractions: 2 reps prior to fatigue. Long Hold contractions: Muscle endurance 2 secs. PT-OP-J Posture/Palpation/Skin Start: 01/11/24 17:27 Freq: Status: Active Protocol: Document 01/14/24 08:20 LRN (Rec: 01/14/24 09:02 LRN [id number]) Posture Evaluation Position Standing Head/C-Spine Posture Neutral Position T-Spine Posture Neutral L-Spine Posture Neutral Shoulder Posture Neutral Arm Posture (L) Neutral,(R) Neutral Pelvis Posture Anteriorly Tilted Weight Distribution Balanced Knee Posture (L) Neutral,(R) Neutral PT-OP-K Range of Motion Start: 01/11/24 17:27 Freq: Status: Active Protocol: Document 01/14/24 08:20 LRN (Rec: 01/14/24 09:02 LRN [id number]) Lumbar Spine Range of Motion Lumbar Spine Active Degrees Testing Position Standing Flexion 83 Extension 20 Rotation Left 20 Rotation Right 20 Lateral Flexion Left 30 Lateral Flexion Right 25 ROM Limitations Soft Tissue Tightness Hip Goniometric Range of Motion Hip Right Passive Testing Position Supine Abduction 30 Internal Rotation 25 External Rotation 45 Left Passive Testing Position Supine Abduction 25 Internal Rotation 10 External Rotation 50 Comments decreased active IR PT-OP-M Strength Start: 01/11/24 17:27 Freq: Status: Active Protocol: Document 01/14/24 08:20 LRN (Rec: 01/14/24 09:02 LRN [id number]) Trunk Strength Trunk Manual Muscle Testing Core Stabilization Mild trunk rotation weakness demonstrated with LE MMT. Hip Strength Hip Manual Muscle Testing Right Comments LE strength is 5/5 Left External Rotation 4+ Good+ Comments LE strength is 5/5 except as indicated above. PT-OP-Q Treatments Start: 01/11/24 17:27 Freq: Status: Active Protocol: Document 02/18/24 08:16 LRN (Rec: 02/18/24 08:59 LRN [id number]) Cardio Equipment Treadmill Duration (Minutes) 8 Speed 4.0 Other cued not to run, and to breath Therapeutic Exercises Supine Exercises Kegel Gold Stamper Long holds Supine Exercise Name Kegel Reps/Minutes 4 SH w/bridge 4 sec>Happy Baby Pose, then 8SH> Kegel/bridge> Happy Baby Comments Modification continually for max 10 SH of Gold Stamper PF contract Abdominal stretch Supine Exercise Name LUIS>Sphinx Reps/Minutes P Standing Exercises Trunk SB stretch Standing Exercise Name R>L Side bilateral Comments Cued to equal WB through legs. Other Exercises Lg TBall trunk stretch Other Exercise Name Anterior/Lateral trunk stretching over TBall Equipment Used Lg/Gr TBall Reps/Minutes 3 breath holds x 6 Comments Much cuing(PF relax/breath)/ extra time needed to determ max santos stretch Child' Pose Other Exercise Name Knee shdr width apart & knees out Equipment Used Gr TBAll Reps/Minutes 3 breath holds x 6 Comments Xtra time for trng stretch PF with inhale and relax w/exhale PT-OP-T Assessment and Plan Start: 01/11/24 17:27 Freq: Status: Active Protocol: Document 02/18/24 08:16 LRN (Rec: 02/18/24 08:59 LRN [id number]) Physical Therapy Assessment Goals Three Impairment Decreased posterior PF endurance of anal sphincter contraction (2 sec hold) Short Term Goal (STG) Pt will be educated in posterior PF strengthening ex' s to hold an anal sphincter contraction 5 secs prior to fatigue. STG Duration 4 wks-02/11/24 [facility] Goal (LTG) Pt will be able to hold an anal sphincter contraction 10 secs prior to fatigue LTG Duration 11 wks-03/31/24 Two Impairment Pain with intercourse Short Term Goal (STG) And will demonstrate awareness of how to relax her PF with deep breathing. 01/21/24: Training to relax PF with inhale of Deep Breathing. 02/11/24: Further training for reverse Kegel with breath during exercise. STG Duration 3 wks-02/04/24 progressed Product Support Analyst Goal (LTG) Pt will be able to tolerate intercourse with spouse with minimal to no pain. 02/11/24: Less pain with intercourse if stretching PF first. LTG Duration 11 wks-03/31/24 progressing 02/11/24 One Impairment Pt lacks appropriate self care HEP Short Term Goal (STG) Pt will be educated in genital and vulvar self care. STG Duration 2 wks-01/28/24 Product Support Analyst Goal (LTG) Pt will be independent in appropriate self care HEP of PF, hip & trunk stretches, and she will be able to self stretch her PF using a wand. 01/21/24: Pt issued XS wand for home PF stretching, and instructed in deep breathing. 01/28/24: HEP issued: Happy Baby Pose, Sphinx abdominal stretch and SL hip AD stretch. 02/11/24: HEP: Trunk rot & SB stretch LTG Duration 11 wks-03/31/24 progressed 02/11/24 Assessment Summary Assessment 33 yo female with an anterior PF & hip tightness, and lumbar tension. Pt gets good trunk stretching on Theraball and R >L for lateral trunk stretch. Child's pose also getting stretch to hip AD's and Gold Stamper PF, good recall. Physical Therapy Plan Frequency and Duration Frequency of Treatment 1x/Week Duration of treatment (weeks) 11 Plan of Care Start Date 01/14/24 Plan of Care End Date 03/31/24 Next Visit Focus/Plan Next Note Type Treatment Note Next Visit Plan Cont to review transfers w/ breath and breath w/PF relaxation, EDUCATION: body mechanics for PF relaxation. EXER: Posterior PF strengthening for endurance with PF relx to end. Cont/ assist: Hip & trunk stretches. MANUAL: if pt chooses - internal PF stretch around clock and PF ?anter vs [employer] ticket cashier. POC: Pt education, Manual therapy (hips, PF). Biofeedback if able to stretch enough to santos with vaginal sensor. Therapeutic Exercises, Therapeutic Activities
--- NOTE | 2024-03-03 15:05 | PT.OTN ---
Current Diagnoses Unspecified dyspareunia (03/03/24) Physical Therapy Treatment Note PT-OP-A Visit Information Start: 01/11/24 17:27 Freq: Status: Active Protocol: Document 03/03/24 13:49 LRN (Rec: 03/03/24 14:59 LRN [id number]) Out-Patient Physical Therapy Visit Information Visit Information Visit Type Treatment Note Visit Start Time 13:49 Visit Stop Time 14:33 Visit Number 03/09 Evaluation Information Evaluation Date 01/14/24 Precautions Precautions None PT-OP-B Current Condition Start: 01/11/24 17:27 Freq: Status: Active Protocol: Document 01/14/24 08:20 LRN (Rec: 01/14/24 09:02 LRN [id number]) Current Condition History of Current Condition Onset Date 2 yrs ago Current Complaints Painful intercourse. History of Current Condition Pain during intercourse with spouse. Pt had no prior history of intercourse before marrage. Has referral to see gyno Dr. Marrero and was told ms needing to relax. 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 Prior Treatments and Tests None Developmental History Developmental History None Treatment Goals Patient/Caregiver Goals Pt goal with therapy: No pain with intercourse. Pt agreeable to a HEP and self care education. Personal Factors Other Personal Factors That May Effect None. Therapy/Recovery PT-OP-C Subjective Start: 01/11/24 17:27 Freq: Status: Active Protocol: Document 03/03/24 13:49 LRN (Rec: 03/03/24 14:59 LRN [id number]) OP-PT Subjective Patient Comments Patient Comments No real changes. Shallow intercourse is ok, feels pain with deeper penetration. Less pain when deep breathing. PT-OP-I Pelvic Floor Start: 01/11/24 17:27 Freq: Status: Active Protocol: Document 01/14/24 08:20 LRN (Rec: 01/14/24 09:02 LRN [id number]) Pelvic Floor Assessment Urine Other Urinary Symptoms None Bowel Bowel Movement Frequency 1/day [place] Stool Chart Comments Type 4 Pelvic Clock Pelvic Clock 12-3 Tenderness,Tightness Pelvic Clock 3-6 Tenderness,Tightness Pelvic Clock 6-9 Tenderness,Tightness Pelvic Clock 9-12 Tenderness,Tightness Pelvic Clock Other Redness at entire labia minora Prolapse Prolapse Comments Pt not able to tolerate digital palpation to assess for prolapse. Perineal Descent Resting Absent Bearing Absent Comments Pelvic Floor Comments Posterior PF assesment per anal sphincter palpation: Quick Contractions: 2 reps prior to fatigue. Long Hold contractions: Muscle endurance 2 secs. PT-OP-J Posture/Palpation/Skin Start: 01/11/24 17:27 Freq: Status: Active Protocol: Document 01/14/24 08:20 LRN (Rec: 01/14/24 09:02 LRN [id number]) Posture Evaluation Position Standing Head/C-Spine Posture Neutral Position T-Spine Posture Neutral L-Spine Posture Neutral Shoulder Posture Neutral Arm Posture (L) Neutral,(R) Neutral Pelvis Posture Anteriorly Tilted Weight Distribution Balanced Knee Posture (L) Neutral,(R) Neutral PT-OP-K Range of Motion Start: 01/11/24 17:27 Freq: Status: Active Protocol: Document 01/14/24 08:20 LRN (Rec: 01/14/24 09:02 LRN [id number]) Lumbar Spine Range of Motion Lumbar Spine Active Degrees Testing Position Standing Flexion 83 Extension 20 Rotation Left 20 Rotation Right 20 Lateral Flexion Left 30 Lateral Flexion Right 25 ROM Limitations Soft Tissue Tightness Hip Goniometric Range of Motion Hip Right Passive Testing Position Supine Abduction 30 Internal Rotation 25 External Rotation 45 Left Passive Testing Position Supine Abduction 25 Internal Rotation 10 External Rotation 50 Comments decreased active IR PT-OP-M Strength Start: 01/11/24 17:27 Freq: Status: Active Protocol: Document 01/14/24 08:20 LRN (Rec: 01/14/24 09:02 LRN [id number]) Trunk Strength Trunk Manual Muscle Testing Core Stabilization Mild trunk rotation weakness demonstrated with LE MMT. Hip Strength Hip Manual Muscle Testing Right Comments LE strength is 5/5 Left External Rotation 4+ Good+ Comments LE strength is 5/5 except as indicated above. PT-OP-Q Treatments Start: 01/11/24 17:27 Freq: Status: Active Protocol: Document 03/03/24 13:49 LRN (Rec: 03/03/24 14:59 LRN [id number]) Therapeutic Exercises Supine Exercises LTR stretch Supine Exercise Name LTR stretch Side bilateral Equipment Used Pillow btn legs Reps/Minutes 1' each side Comments Extra time for repositioning p stretch (cued to not shift hips btn stretch) Other Exercises Child' Pose Other Exercise Name Knee shdr width apart & knees out Reps/Minutes 3 breath holds x 6 Comments Xtra time for doing breath w/ stretch (PF with inhale and relax w/exhale) Therapeutic Activity Therapeutic Activity Transfer training w/breath Name Reviewed sup<>sit<>stand w/ breathwork Reps/Minutes 3' Manual Therapy Treatment Soft Tissue Mobilization Abdomen Body Location [place], Lower abdomen MFR & lift in region of small intestines. Mobilization Type Sustained Pressure Intensity/Depth Moderate Body Position Supine Self-Care/Home Management Treatment Education Patient Education Home Exercise Program Other Education Handouts issued & discussed of General Vulvar Care & Genital Hygiene for Women for clarification of any questions regarding hanouts. Activities Self-Care/Home Management Activities Issued & reviewed HEP: Child' s Pose PT-OP-T Assessment and Plan Start: 01/11/24 17:27 Freq: Status: Active Protocol: Document 03/03/24 13:49 LRN (Rec: 03/03/24 14:59 LRN [id number]) Physical Therapy Assessment Goals Three Impairment Decreased posterior PF endurance of anal sphincter contraction (2 sec hold) Short Term Goal (STG) Pt will be educated in posterior PF strengthening ex' s to hold an anal sphincter contraction 5 secs prior to fatigue. STG Duration 4 wks-02/11/24 Club Concierge Goal (LTG) Pt will be able to hold an anal sphincter contraction 10 secs prior to fatigue LTG Duration 11 wks-03/31/24 Two Impairment Pain with intercourse Short Term Goal (STG) And will demonstrate awareness of how to relax her PF with deep breathing. 01/21/24: Training to relax PF with inhale of Deep Breathing. 02/11/24: Further training for reverse Kegel with breath during exercise. STG Duration 3 wks-02/04/24 progressed Club Concierge Goal (LTG) Pt will be able to tolerate intercourse with spouse with minimal to no pain. 02/11/24: Less pain with intercourse if stretching PF first. 03/03/24: Pain only with deep thrust, not with orgasm. LTG Duration 11 wks-03/31/24 progressing 03/03/24 One Impairment Pt lacks appropriate self care HEP Short Term Goal (STG) Pt will be educated in genital and vulvar self care. 03/03/24: Pt educated in genital and vulvar self care. STG Duration 2 wks-01/28/24 (03/03/24: MET GOAL) Club Concierge Goal (LTG) Pt will be independent in appropriate self care HEP of PF, hip & trunk stretches, and she will be able to self stretch her PF using a wand. 01/21/24: Pt issued XS wand for home PF stretching, and instructed in deep breathing. 01/28/24: HEP issued: Happy Baby Pose, Sphinx abdominal stretch and SL hip AD stretch. 02/11/24: HEP: Trunk rot & SB stretch 03/03/24: HEP: Child's Pose for LB/abdominal stretch. I/S pt in self MFR of abdomen, hip/abdominal/LB stretching, breath w/transfers; intercourse hips elevated. LTG Duration 11 wks-03/31/24 progressed 03/03/24 Assessment Summary Assessment 33 yo female with pelvic pain during intercourse only w/deep thrust; and tightness of anterior PF & hip (hamstring, AD's & rotators IR>ER), lumbar tension, weakness of chiropractor sole practitioner PF. Today pt shows limited core pressure mgmt, often forgetting to breath w/ transfers, a little stiff in L suboccital region, decreased tissue mob of lower abdomen and R LB and discomfort. L C1 -C2 region is stiff. Physical Therapy Plan Frequency and Duration Frequency of Treatment 1x/Week Duration of treatment (weeks) 11 Plan of Care Start Date 01/14/24 Plan of Care End Date 03/31/24 Next Visit Focus/Plan Next Note Type Treatment Note Next Visit Plan Assess response to self care while on business trip for next 2 wks. Review/monitor transfers w/ breath, and breath w/PF relaxation. Start C1-C2 STM/ ROM for vagus n stim. EDUCATION: body mechanics for PF relaxation. EXER: Add further Posterior PF strengthening for endurance with PF relax to end. Assisted stretches: Hip & trunk. POC: Pt education, Manual therapy (hips, PF, abdomen). Biofeedback if able to stretch enough to santos with vaginal sensor. Therapeutic Exercises, Therapeutic Activities
--- NOTE | 2024-03-03 15:07 | PT-OP ANOTE ---
Pt notified by phone of Armond meza exp 03/22/24 and for pt to contact PCP to request new auth to continue PT treatment after 03/22. Pt agreeable, pt not going to return from trip until 03/31/24.
--- NOTE | 2024-04-07 17:01 | PT.OTN ---
Current Diagnoses Unspecified dyspareunia (04/07/24) Physical Therapy Treatment Note PT-OP-A Visit Information Start: 01/11/24 17:27 Freq: Status: Active Protocol: Document 04/07/24 14:40 LRN (Rec: 04/07/24 16:49 LRN [id number]) Out-Patient Physical Therapy Visit Information Visit Information Visit Type Progress Note Visit Note Pt shows email of 12 more approved PT visits (03/22/24-) by insurance that pt will provide copy to schedulers Visit Start Time 14:40 Visit Stop Time 15:20 Visit Number 12/10 Evaluation Information Evaluation Date 01/14/24 Precautions Precautions None PT-OP-B Current Condition Start: 01/11/24 17:27 Freq: Status: Active Protocol: Document 01/14/24 08:20 LRN (Rec: 01/14/24 09:02 LRN [id number]) Current Condition History of Current Condition Onset Date 2 yrs ago Current Complaints Painful intercourse. History of Current Condition Pain during intercourse with spouse. Pt had no prior history of intercourse before marrage. Has referral to see gyno Dr. Marrero and was told ms needing to relax. 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 Prior Treatments and Tests None Developmental History Developmental History None Treatment Goals Patient/Caregiver Goals Pt goal with therapy: No pain with intercourse. Pt agreeable to a HEP and self care education. Personal Factors Other Personal Factors That May Effect None. Therapy/Recovery PT-OP-C Subjective Start: 01/11/24 17:27 Freq: Status: Active Protocol: Document 04/07/24 14:40 LRN (Rec: 04/07/24 16:52 LRN [id number]) OP-PT Subjective Patient Comments Patient Comments States still has pain with intercourse with deep thrust only. Found deep breathing and having hips on pilllows helps to decreased the pain, but other positions do not. PT-OP-I Pelvic Floor Start: 01/11/24 17:27 Freq: Status: Active Protocol: Document 01/14/24 08:20 LRN (Rec: 01/14/24 09:02 LRN [id number]) Pelvic Floor Assessment Urine Other Urinary Symptoms None Bowel Bowel Movement Frequency 1/day [place] Stool Chart Comments Type 4 Pelvic Clock Pelvic Clock 12-3 Tenderness,Tightness Pelvic Clock 3-6 Tenderness,Tightness Pelvic Clock 6-9 Tenderness,Tightness Pelvic Clock 9-12 Tenderness,Tightness Pelvic Clock Other Redness at entire labia minora Prolapse Prolapse Comments Pt not able to tolerate digital palpation to assess for prolapse. Perineal Descent Resting Absent Bearing Absent Comments Pelvic Floor Comments Posterior PF assesment per anal sphincter palpation: Quick Contractions: 2 reps prior to fatigue. Long Hold contractions: Muscle endurance 2 secs. PT-OP-J Posture/Palpation/Skin Start: 01/11/24 17:27 Freq: Status: Active Protocol: Document 01/14/24 08:20 LRN (Rec: 01/14/24 09:02 LRN [id number]) Posture Evaluation Position Standing Head/C-Spine Posture Neutral Position T-Spine Posture Neutral L-Spine Posture Neutral Shoulder Posture Neutral Arm Posture (L) Neutral,(R) Neutral Pelvis Posture Anteriorly Tilted Weight Distribution Balanced Knee Posture (L) Neutral,(R) Neutral PT-OP-K Range of Motion Start: 01/11/24 17:27 Freq: Status: Active Protocol: Document 01/14/24 08:20 LRN (Rec: 01/14/24 09:02 LRN [id number]) Lumbar Spine Range of Motion Lumbar Spine Active Degrees Testing Position Standing Flexion 83 Extension 20 Rotation Left 20 Rotation Right 20 Lateral Flexion Left 30 Lateral Flexion Right 25 ROM Limitations Soft Tissue Tightness Hip Goniometric Range of Motion Hip Right Passive Testing Position Supine Abduction 30 Internal Rotation 25 External Rotation 45 Left Passive Testing Position Supine Abduction 25 Internal Rotation 10 External Rotation 50 Comments decreased active IR PT-OP-M Strength Start: 01/11/24 17:27 Freq: Status: Active Protocol: Document 01/14/24 08:20 LRN (Rec: 01/14/24 09:02 LRN [id number]) Trunk Strength Trunk Manual Muscle Testing Core Stabilization Mild trunk rotation weakness demonstrated with LE MMT. Hip Strength Hip Manual Muscle Testing Right Comments LE strength is 5/5 Left External Rotation 4+ Good+ Comments LE strength is 5/5 except as indicated above. PT-OP-Q Treatments Start: 01/11/24 17:27 Freq: Status: Active Protocol: Document 04/07/24 14:40 LRN (Rec: 04/07/24 16:49 LRN [id number]) Therapeutic Exercises Supine Exercises Vagal n stim Supine Exercise Name Positional stretch to c/s: Neck ext w/rot hold through 3 breaths and LTR. Side bilateral Reps/Minutes 8' Comments Pt neck tightness on R>L Kegel/Repetitious bridging Supine Exercise Name Kegel/10 bridges - HEP 5 reps Reps/Minutes Bridge x10 holding Kegel Comments Cued to assure PF relaxation after ex Kegel Web Assistant Long holds Supine Exercise Name Bridge/Kegel - HEP: 5 reps Reps/Minutes 10 SH w/bridge x 2 Comments VC's to modify for max 10 SH as needed if not able to get PF relaxation Happy Baby Pose Supine Exercise Name Happy Baby Pose: Knees flexed and knee mildly straightened. Reps/Minutes 4' Comments Cued PPT & deep breath with stretch Piriformis stretch Supine Exercise Name ankle over knee>ktc and knee to opp shoulder. Side left Reps/Minutes 4' Sitting Exercises Trunk Rot stretch Sitting Exercise Name Looking over shdr, Hand behind , Hand on knee to assist rot Side bilateral Reps/Minutes 4' Comments Cued for sitting on sit bones, & breath SL Hip AD stretch Sitting Exercise Name Inhale-reverse Kegel; exhale relax PF Side bilateral Reps/Minutes 4' Comments Cued breathing for PF stretch Other Exercises Lg TBall trunk stretch Other Exercise Name Anterior/Lateral trunk/Child's pose stretching over TBall Equipment Used Lg/Gr TBall Reps/Minutes 12' Comments Much cuing(PF relax/breath)/ extra time needed to get anterior hip/lower ab PT-OP-T Assessment and Plan Start: 01/11/24 17:27 Freq: Status: Active Protocol: Document 04/07/24 14:40 LRN (Rec: 04/07/24 16:49 LRN [id number]) Physical Therapy Assessment Rehab Potential Rehabilitation Potential Good Evaluation Complexity Number of Personal Factors/Comorbidities 0 Number of Body Systems Impaired 4 or More Clinical Presentation at Evaluation Evolving Impairments Impairments Activity Tolerance,Pain,ROM, Soft Tissue Mobility,Strength, Transfers Goals Three Impairment Decreased posterior PF endurance of anal sphincter contraction (2 sec hold) Short Term Goal (STG) Pt will be educated in posterior PF strengthening ex' s to hold an anal sphincter contraction 5 secs prior to fatigue. 04/07/24: Kegel/Bridge long hold and quick contractions w/ focus on relaxation after strengthening. STG Duration 6 wks-05/19/24 progressed 04/07/24 Valve Inspector Goal (LTG) Pt will be able to hold an anal sphincter contraction 10 secs prior to fatigue LTG Duration 14 wks-07/18/24 Two Impairment Pain with intercourse Short Term Goal (STG) And will demonstrate awareness of how to relax her PF with deep breathing. 01/21/24: Training to relax PF with inhale of Deep Breathing. 02/11/24: Further training for reverse Kegel with breath during exercise. 04/07/24: Pt noting deep breathing was found to be helpful in reducing deep thrust pain, but pain present. STG Duration 6 wks-05/19/24 progressed Mcfp Goal (LTG) Pt will be able to tolerate intercourse with spouse with minimal to no pain. 02/11/24: Less pain with intercourse if stretching PF first. 03/03/24: Pain only with deep thrust, not with orgasm. LTG Duration 14 wks-07/18/24 progressing 03/03/24 One Impairment Pt lacks appropriate self care HEP Short Term Goal (STG) Pt will be educated in genital and vulvar self care. 03/03/24: Pt educated in genital and vulvar self care. STG Duration 2 wks-01/28/24 (03/03/24: MET GOAL) Mcfp Goal (LTG) Pt will be independent in appropriate self care HEP of PF, hip & trunk stretches, and she will be able to self stretch her PF using a wand. 01/21/24: Pt issued XS wand for home PF stretching, and instructed in deep breathing. 01/28/24: HEP issued: Happy Baby Pose, Sphinx abdominal stretch and SL hip AD stretch. 02/11/24: HEP: Trunk rot & SB stretch 03/03/24: HEP: Child's Pose for LB/abdominal stretch. I/S pt in self MFR of abdomen, hip/abdominal/LB stretching, breath w/transfers; intercourse hips elevated. 04/07/24: I/S Web Assistant PF strengthening: Kegel w/Bridge 10 SH and quick reps. LTG Duration 14 wks-07/18/24 progressed 03/03/24 Assessment Summary Assessment The pt is a 33 yo female who returns after being gone for 2 wks on a business trip; who initially had anterior PF, hip tightness and lumbar tension, weakness of posterior PF, with pelvic pain during intercourse only w/deep thrust . Currently, she is having pelvic pain during intercourse only w/deep thrust with intial insertion pain resolved . She is working on improving the tightness of of her anterior PF & hips and reducing lumbar tension with exercise. 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 Her plan of care request is extended to 14 wks due to anticipation of therapist abscence for 3.5 wks in May . It should be noted that she has reported painful periods since starting her menstrual cycle; therefore if the pt is not able to gain further relief of her pain with therapy, she may need assessment for possible endometriosis. Today we were able to get an appropriate stretch to her anterior hip/ lower abdominal region with positional correction with her HEP stretch on a Therapy Ball . Stretch to C/S for vagal n. stim showed cervical tightness on R side>L side. The pt would benefit from continued skilled physical therapy to improve abdominal/ hip mobility, reduce pain with intercourse and improve posterior PF strength for symmetry of PF muscles. Physical Therapy Plan Frequency and Duration Frequency of Treatment 1x/Week Duration of treatment (weeks) 14 Plan of Care Start Date 04/07/24 Plan of Care End Date 07/18/24 Therapeutic Interventions Therapeutic Interventions Coordination Training,Home Exercise Program,Joint Mobilizations,Manual Therapy, Neuromuscular Re-education, Self-Care/Home Management,Soft Tissue Mobilization,Taping, Therapeutic Exercises Modalities Biofeedback,Electric Stimulation Next Visit Focus/Plan Next Note Type Treatment Note Next Visit Plan Focus on abdominal manual therapy to lift uterus/bladder ; Review/monitor transfers w/ breath, and breath w/PF relaxation. Start C1-C2 STM/ ROM for vagus n stim & review C/S stretch. EDUCATION: body mechanics for PF relaxation. EXER: Add further Posterior PF strengthening for endurance with PF relax to end. Assisted stretches: Hip & trunk. POC: Pt education, Manual therapy (hips, PF, abdomen). Biofeedback if able to stretch enough to santos with vaginal sensor. Therapeutic Exercises, Therapeutic Activities
--- NOTE | 2024-04-07 17:03 | PT.OPPOC ---
Physical, Occupational & Speech Therapy At [facility] Current Diagnoses Unspecified dyspareunia (04/07/24) Visit Care Team Role Provider Type Tara Bernal DO Attending Provider Non-Staff Family Provider Primary Care Provider Referring Provider Specialty: Family Practice Address: [address] [place] [address], [place], [address] Fax: Email: Plan Of Care PT-OP-T Assessment and Plan Start: 01/11/24 17:27 Freq: Status: Active Protocol: Document 04/07/24 14:40 LRN (Rec: 04/07/24 16:49 LRN [id number]) Physical Therapy Assessment Rehab Potential Rehabilitation Potential Good Evaluation Complexity Number of Personal Factors/Comorbidities 0 Number of Body Systems Impaired 4 or More Clinical Presentation at Evaluation Evolving Impairments Impairments Activity Tolerance,Pain,ROM, Soft Tissue Mobility,Strength, Transfers Goals Three Impairment Decreased posterior PF endurance of anal sphincter contraction (2 sec hold) Short Term Goal (STG) Pt will be educated in posterior PF strengthening ex' s to hold an anal sphincter contraction 5 secs prior to fatigue. 04/07/24: Kegel/Bridge long hold and quick contractions w/ focus on relaxation after strengthening. STG Duration 6 wks-05/19/24 progressed 04/07/24 Senior Research Project Manager Goal (LTG) Pt will be able to hold an anal sphincter contraction 10 secs prior to fatigue LTG Duration 14 wks-07/18/24 Two Impairment Pain with intercourse Short Term Goal (STG) And will demonstrate awareness of how to relax her PF with deep breathing. 01/21/24: Training to relax PF with inhale of Deep Breathing. 02/11/24: Further training for reverse Kegel with breath during exercise. 04/07/24: Pt noting deep breathing was found to be helpful in reducing deep thrust pain, but pain present. STG Duration 6 wks-05/19/24 progressed Intermediate Goal (LTG) Pt will be able to tolerate intercourse with spouse with minimal to no pain. 02/11/24: Less pain with intercourse if stretching PF first. 03/03/24: Pain only with deep thrust, not with orgasm. LTG Duration 14 wks-07/18/24 progressing 03/03/24 One Impairment Pt lacks appropriate self care HEP Short Term Goal (STG) Pt will be educated in genital and vulvar self care. 03/03/24: Pt educated in genital and vulvar self care. STG Duration 2 wks-01/28/24 (03/03/24: MET GOAL) Senior Research Project Manager Goal (LTG) Pt will be independent in appropriate self care HEP of PF, hip & trunk stretches, and she will be able to self stretch her PF using a wand. 01/21/24: Pt issued XS wand for home PF stretching, and instructed in deep breathing. 01/28/24: HEP issued: Happy Baby Pose, Sphinx abdominal stretch and SL hip AD stretch. 02/11/24: HEP: Trunk rot & SB stretch 03/03/24: HEP: Child's Pose for LB/abdominal stretch. I/S pt in self MFR of abdomen, hip/abdominal/LB stretching, breath w/transfers; intercourse hips elevated. 04/07/24: I/S Decal Cutter PF strengthening: Kegel w/Bridge 10 SH and quick reps. LTG Duration 14 wks-07/18/24 progressed 03/03/24 Assessment Summary Assessment The pt is a 33 yo female who returns after being gone for 2 wks on a business trip; who initially had anterior PF, hip tightness and lumbar tension, weakness of posterior PF, with pelvic pain during intercourse only w/deep thrust . Currently, she is having pelvic pain during intercourse only w/deep thrust with intial insertion pain resolved . She is working on improving the tightness of of her anterior PF & hips and reducing lumbar tension with exercise. 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 Her plan of care request is extended to 14 wks due to anticipation of therapist abscence for 3.5 wks in May . It should be noted that she has reported painful periods since starting her menstrual cycle; therefore if the pt is not able to gain further relief of her pain with therapy, she may need assessment for possible endometriosis. Today we were able to get an appropriate stretch to her anterior hip/ lower abdominal region with positional correction with her HEP stretch on a Therapy Ball . Stretch to C/S for vagal n. stim showed cervical tightness on R side>L side. The pt would benefit from continued skilled physical therapy to improve abdominal/ hip mobility, reduce pain with intercourse and improve posterior PF strength for symmetry of PF muscles. Physical Therapy Plan Frequency and Duration Frequency of Treatment 1x/Week Duration of treatment (weeks) 14 Plan of Care Start Date 04/07/24 Plan of Care End Date 07/18/24 Therapeutic Interventions Therapeutic Interventions Coordination Training,Home Exercise Program,Joint Mobilizations,Manual Therapy, Neuromuscular Re-education, Self-Care/Home Management,Soft Tissue Mobilization,Taping, Therapeutic Exercises Modalities Biofeedback,Electric Stimulation Next Visit Focus/Plan Next Note Type Treatment Note Next Visit Plan Focus on abdominal manual therapy to lift uterus/bladder ; Review/monitor transfers w/ breath, and breath w/PF relaxation. Start C1-C2 STM/ ROM for vagus n stim & review C/S stretch. EDUCATION: body mechanics for PF relaxation. EXER: Add further Posterior PF strengthening for endurance with PF relax to end. Assisted stretches: Hip & trunk. POC: Pt education, Manual therapy (hips, PF, abdomen). Biofeedback if able to stretch enough to santos with vaginal sensor. Therapeutic Exercises, Therapeutic Activities Plan of Care Dates Plan of Care Start Date 04/07/24 Plan of Care End Date 07/18/24 Electronically Signed by: Zenobia Mulligan, PT 04/07/24 [id number] If you are in agreement with this Plan of Care, please return a signed and dated copy. I have reviewed this Plan of Care and certify that the skilled therapy services above are required to meet the patient?s needs. Physician Signature Date Printed Name and Credentials Clinical Instructor Signature Printed Name and Credentials
--- NOTE | 2024-04-14 15:33 | PT.OTN ---
Current Diagnoses Unspecified dyspareunia (04/14/24) Physical Therapy Treatment Note PT-OP-A Visit Information Start: 01/11/24 17:27 Freq: Status: Active Protocol: Document 04/14/24 14:36 LRN (Rec: 04/14/24 15:26 LRN [id number]) Out-Patient Physical Therapy Visit Information Visit Information Visit Type Treatment Note Visit Note Pt shows email of 12 more approved PT visits (03/22/24-) by insurance that pt will provide copy to schedulers Visit Start Time 14:36 Visit Stop Time 15:16 Visit Number 01/07 Evaluation Information Evaluation Date 01/14/24 Precautions Precautions None PT-OP-B Current Condition Start: 01/11/24 17:27 Freq: Status: Active Protocol: Document 01/14/24 08:20 LRN (Rec: 01/14/24 09:02 LRN [id number]) Current Condition History of Current Condition Onset Date 2 yrs ago Current Complaints Painful intercourse. History of Current Condition Pain during intercourse with spouse. Pt had no prior history of intercourse before marrage. Has referral to see gyno Dr. Marrero and was told ms needing to relax. 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 Prior Treatments and Tests None Developmental History Developmental History None Treatment Goals Patient/Caregiver Goals Pt goal with therapy: No pain with intercourse. Pt agreeable to a HEP and self care education. Personal Factors Other Personal Factors That May Effect None. Therapy/Recovery PT-OP-C Subjective Start: 01/11/24 17:27 Freq: Status: Active Protocol: Document 04/14/24 14:36 LRN (Rec: 04/14/24 15:26 LRN [id number]) OP-PT Subjective Patient Comments Patient Comments Family visiting, so only did ex's every other day and not much. PT-OP-I Pelvic Floor Start: 01/11/24 17:27 Freq: Status: Active Protocol: Document 01/14/24 08:20 LRN (Rec: 01/14/24 09:02 LRN [id number]) Pelvic Floor Assessment Urine Other Urinary Symptoms None Bowel Bowel Movement Frequency 1/day [place] Stool Chart Comments Type 4 Pelvic Clock Pelvic Clock 12-3 Tenderness,Tightness Pelvic Clock 3-6 Tenderness,Tightness Pelvic Clock 6-9 Tenderness,Tightness Pelvic Clock 9-12 Tenderness,Tightness Pelvic Clock Other Redness at entire labia minora Prolapse Prolapse Comments Pt not able to tolerate digital palpation to assess for prolapse. Perineal Descent Resting Absent Bearing Absent Comments Pelvic Floor Comments Posterior PF assesment per anal sphincter palpation: Quick Contractions: 2 reps prior to fatigue. Long Hold contractions: Muscle endurance 2 secs. PT-OP-J Posture/Palpation/Skin Start: 01/11/24 17:27 Freq: Status: Active Protocol: Document 01/14/24 08:20 LRN (Rec: 01/14/24 09:02 LRN [id number]) Posture Evaluation Position Standing Head/C-Spine Posture Neutral Position T-Spine Posture Neutral L-Spine Posture Neutral Shoulder Posture Neutral Arm Posture (L) Neutral,(R) Neutral Pelvis Posture Anteriorly Tilted Weight Distribution Balanced Knee Posture (L) Neutral,(R) Neutral PT-OP-K Range of Motion Start: 01/11/24 17:27 Freq: Status: Active Protocol: Document 04/14/24 14:36 LRN (Rec: 04/14/24 15:26 LRN [id number]) Lumbar Spine Range of Motion Lumbar Spine Active Degrees Rotation Left 45 Rotation Right 45 Lateral Flexion Left 24 Lateral Flexion Right 23 PT-OP-M Strength Start: 01/11/24 17:27 Freq: Status: Active Protocol: Document 01/14/24 08:20 LRN (Rec: 01/14/24 09:02 LRN [id number]) Trunk Strength Trunk Manual Muscle Testing Core Stabilization Mild trunk rotation weakness demonstrated with LE MMT. Hip Strength Hip Manual Muscle Testing Right Comments LE strength is 5/5 Left External Rotation 4+ Good+ Comments LE strength is 5/5 except as indicated above. PT-OP-Q Treatments Start: 01/11/24 17:27 Freq: Status: Active Protocol: Document 04/14/24 14:36 LRN (Rec: 04/14/24 15:26 LRN [id number]) Therapeutic Exercises Supine Exercises Vagal n stim Supine Exercise Name Neck ext w/rot hold through 3 breaths, LTR, ahhhhs, ooooohs. Side bilateral Equipment Used Head hanging over folded pillow Reps/Minutes 4' Comments Pt neck tightness with neck rot R>L (L neck tighter) Happy Baby Pose Supine Exercise Name Happy Baby Pose: Knees flexed and knee mildly straightened. Reps/Minutes 4' Comments Cued PPT & deep breath with stretch Sitting Exercises Trunk Rot stretch Sitting Exercise Name Looking over shdr, Hand behind , Hand on knee to assist rot Side bilateral Reps/Minutes 4' Comments ROM taken. Cued for sitting on sit bones and not adjusting after ea motion SL Hip AD stretch Sitting Exercise Name Inhale-reverse Kegel; exhale relax PF Side bilateral Reps/Minutes 4' Comments Cued breathing for PF stretch Standing Exercises Trunk SB stretch Standing Exercise Name R>L Side bilateral Comments ROM taken. Cued to equal WB through legs. Manual Therapy Treatment Soft Tissue Mobilization Abdomen Body Location Lower abdomen MFR of regiou of uterus, bladder & small intestines. Mobilization Type Sustained Pressure Intensity/Depth Moderate Body Position Supine Comments Tight L>R & midline. PT-OP-T Assessment and Plan Start: 01/11/24 17:27 Freq: Status: Active Protocol: Document 04/14/24 14:36 LRN (Rec: 04/14/24 15:26 LRN [id number]) Physical Therapy Assessment Goals Three Impairment Decreased posterior PF endurance of anal sphincter contraction (2 sec hold) Short Term Goal (STG) Pt will be educated in posterior PF strengthening ex' s to hold an anal sphincter contraction 5 secs prior to fatigue. 04/07/24: Kegel/Bridge long hold and quick contractions w/ focus on relaxation after strengthening. STG Duration 6 wks-05/19/24 progressed 04/07/24 Mcfp Goal (LTG) Pt will be able to hold an anal sphincter contraction 10 secs prior to fatigue LTG Duration 14 wks-07/18/24 Two Impairment Pain with intercourse Short Term Goal (STG) And will demonstrate awareness of how to relax her PF with deep breathing. 01/21/24: Training to relax PF with inhale of Deep Breathing. 02/11/24: Further training for reverse Kegel with breath during exercise. 04/07/24: Pt noting deep breathing was found to be helpful in reducing deep thrust pain, but pain present. STG Duration 6 wks-05/19/24 progressed Mcfp Goal (LTG) Pt will be able to tolerate intercourse with spouse with minimal to no pain. 02/11/24: Less pain with intercourse if stretching PF first. 03/03/24: Pain only with deep thrust, not with orgasm. LTG Duration 14 wks-07/18/24 progressing 03/03/24 One Impairment Pt lacks appropriate self care HEP Short Term Goal (STG) Pt will be educated in genital and vulvar self care. 03/03/24: Pt educated in genital and vulvar self care. STG Duration 2 wks-01/28/24 (03/03/24: MET GOAL) Mcfp Goal (LTG) Pt will be independent in appropriate self care HEP of PF, hip & trunk stretches, and she will be able to self stretch her PF using a wand. 01/21/24: Pt issued XS wand for home PF stretching, and instructed in deep breathing. 01/28/24: HEP issued: Happy Baby Pose, Sphinx abdominal stretch and SL hip AD stretch. 02/11/24: HEP: Trunk rot & SB stretch 03/03/24: HEP: Child's Pose for LB/abdominal stretch. I/S pt in self MFR of abdomen, hip/abdominal/LB stretching, breath w/transfers; intercourse hips elevated. 04/07/24: I/S First Helper PF strengthening: Kegel w/Bridge 10 SH and quick reps. 04/14/24: I/S pt in neck rot/ ext stretch and vocalization for vagal n stim. LTG Duration 14 wks-07/18/24 progressed 04/14/24 Assessment Summary Assessment The pt is a 33 yo female who returns after being gone for 2 wks on a business trip; who initially had anterior PF, hip tightness and lumbar tension, weakness of posterior PF, with pelvic pain during intercourse only w/deep thrust . Today, good coordinating of breath with transfers, normal trunk rotation, mildly tight R SB, decreased mobility of fascia in abdomen with distraction and uterus / bladder lift. Good stretch to neck and v nerve stim w/ positioning and vocalization. Physical Therapy Plan Frequency and Duration Frequency of Treatment 1x/Week Duration of treatment (weeks) 14 Plan of Care Start Date 04/07/24 Plan of Care End Date 07/18/24 Next Visit Focus/Plan Next Note Type Treatment Note Next Visit Plan Focus on abdominal manual therapy to lift uterus/bladder /small intestine; C1-C2 STM/ ROM for vagus n stim. EDUCATION: body mechanics for PF relaxation. EXER: Add further Posterior PF strengthening for endurance with PF relax to end. Assisted stretches: Hip & trunk. POC: Pt education, Manual therapy (hips, PF, abdomen). Biofeedback if able to stretch enough to santos with vaginal sensor. Therapeutic Exercises, Therapeutic Activities
--- NOTE | 2024-04-29 16:23 | PT.OTN ---
Current Diagnoses Unspecified dyspareunia (04/29/24) Physical Therapy Treatment Note PT-OP-A Visit Information Start: 01/11/24 17:27 Freq: Status: Active Protocol: Document 04/29/24 07:33 LRN (Rec: 04/29/24 08:18 LRN [id number]) Out-Patient Physical Therapy Visit Information Visit Information Visit Type Treatment Note Visit Note Pt shows email of 12 more approved PT visits (03/22/24-) by insurance that pt will provide copy to schedulers Visit Start Time 07:33 Visit Stop Time 08:17 Visit Number 02/07 Evaluation Information Evaluation Date 01/14/24 Precautions Precautions None PT-OP-B Current Condition Start: 01/11/24 17:27 Freq: Status: Active Protocol: Document 01/14/24 08:20 LRN (Rec: 01/14/24 09:02 LRN [id number]) Current Condition History of Current Condition Onset Date 2 yrs ago Current Complaints Painful intercourse. History of Current Condition Pain during intercourse with spouse. Pt had no prior history of intercourse before marrage. Has referral to see gyno Dr. Marrero and was told ms needing to relax. 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 Prior Treatments and Tests None Developmental History Developmental History None Treatment Goals Patient/Caregiver Goals Pt goal with therapy: No pain with intercourse. Pt agreeable to a HEP and self care education. Personal Factors Other Personal Factors That May Effect None. Therapy/Recovery PT-OP-C Subjective Start: 01/11/24 17:27 Freq: Status: Active Protocol: Document 04/29/24 07:33 LRN (Rec: 04/29/24 08:18 LRN [id number]) OP-PT Subjective Patient Comments Patient Comments All last week was sick, respiratory. Doesn't recall a change in condition after last treatment, but states it was a long time ago. PT-OP-I Pelvic Floor Start: 01/11/24 17:27 Freq: Status: Active Protocol: Document 01/14/24 08:20 LRN (Rec: 01/14/24 09:02 LRN [id number]) Pelvic Floor Assessment Urine Other Urinary Symptoms None Bowel Bowel Movement Frequency 1/day [place] Stool Chart Comments Type 4 Pelvic Clock Pelvic Clock 12-3 Tenderness,Tightness Pelvic Clock 3-6 Tenderness,Tightness Pelvic Clock 6-9 Tenderness,Tightness Pelvic Clock 9-12 Tenderness,Tightness Pelvic Clock Other Redness at entire labia minora Prolapse Prolapse Comments Pt not able to tolerate digital palpation to assess for prolapse. Perineal Descent Resting Absent Bearing Absent Comments Pelvic Floor Comments Posterior PF assesment per anal sphincter palpation: Quick Contractions: 2 reps prior to fatigue. Long Hold contractions: Muscle endurance 2 secs. PT-OP-J Posture/Palpation/Skin Start: 01/11/24 17:27 Freq: Status: Active Protocol: Document 01/14/24 08:20 LRN (Rec: 01/14/24 09:02 LRN [id number]) Posture Evaluation Position Standing Head/C-Spine Posture Neutral Position T-Spine Posture Neutral L-Spine Posture Neutral Shoulder Posture Neutral Arm Posture (L) Neutral,(R) Neutral Pelvis Posture Anteriorly Tilted Weight Distribution Balanced Knee Posture (L) Neutral,(R) Neutral PT-OP-K Range of Motion Start: 01/11/24 17:27 Freq: Status: Active Protocol: Document 04/14/24 14:36 LRN (Rec: 04/14/24 15:26 LRN [id number]) Lumbar Spine Range of Motion Lumbar Spine Active Degrees Rotation Left 45 Rotation Right 45 Lateral Flexion Left 24 Lateral Flexion Right 23 PT-OP-M Strength Start: 01/11/24 17:27 Freq: Status: Active Protocol: Document 01/14/24 08:20 LRN (Rec: 01/14/24 09:02 LRN [id number]) Trunk Strength Trunk Manual Muscle Testing Core Stabilization Mild trunk rotation weakness demonstrated with LE MMT. Hip Strength Hip Manual Muscle Testing Right Comments LE strength is 5/5 Left External Rotation 4+ Good+ Comments LE strength is 5/5 except as indicated above. PT-OP-Q Treatments Start: 01/11/24 17:27 Freq: Status: Active Protocol: Document 04/29/24 07:33 LRN (Rec: 04/29/24 08:18 LRN [id number]) Therapeutic Exercises Supine Exercises Blayne BKFO Reps/Minutes 2' Happy Baby Pose Supine Exercise Name Happy Baby Pose: Knees flexed and knee mildly straightened. Reps/Minutes 4' Comments Cued PPT & deep breath with stretch Sitting Exercises Trunk Rot stretch Sitting Exercise Name Looking over shdr, Hand behind , Hand on knee to assist rot Side bilateral Reps/Minutes 4' Comments ROM taken. Cued for sitting on sit bones and not adjusting after ea motion SL Hip AD stretch Sitting Exercise Name Inhale-reverse Kegel; exhale relax PF Side bilateral Reps/Minutes 4' Comments Cued breathing for PF stretch Other Exercises Lg TBall trunk stretch Other Exercise Name Anterior/Lateral trunk stretching over TBall Equipment Used Lg/Gr TBall Reps/Minutes 10' Comments Cuing for anterior hip and abdominal stretch Manual Therapy Treatment Soft Tissue Mobilization Abdomen Body Location Lower abdomen MFR of uterus on bladder & bladder. Mobilization Type Sustained Pressure Intensity/Depth Moderate Body Position Hooklying PT-OP-T Assessment and Plan Start: 01/11/24 17:27 Freq: Status: Active Protocol: Document 04/29/24 07:33 LRN (Rec: 04/29/24 08:18 LRN [id number]) Physical Therapy Assessment Goals Three Impairment Decreased posterior PF endurance of anal sphincter contraction (2 sec hold) Short Term Goal (STG) Pt will be educated in posterior PF strengthening ex' s to hold an anal sphincter contraction 5 secs prior to fatigue. 04/07/24: Kegel/Bridge long hold and quick contractions w/ focus on relaxation after strengthening. STG Duration 6 wks-05/19/24 progressed 04/07/24 Halfway Goal (LTG) Pt will be able to hold an anal sphincter contraction 10 secs prior to fatigue LTG Duration 14 wks-07/18/24 Two Impairment Pain with intercourse Short Term Goal (STG) And will demonstrate awareness of how to relax her PF with deep breathing. 01/21/24: Training to relax PF with inhale of Deep Breathing. 02/11/24: Further training for reverse Kegel with breath during exercise. 04/07/24: Pt noting deep breathing was found to be helpful in reducing deep thrust pain, but pain present. STG Duration 6 wks-05/19/24 progressed Template Reproduction Technician Goal (LTG) Pt will be able to tolerate intercourse with spouse with minimal to no pain. 02/11/24: Less pain with intercourse if stretching PF first. 03/03/24: Pain only with deep thrust, not with orgasm. LTG Duration 14 wks-07/18/24 progressing 03/03/24 One Impairment Pt lacks appropriate self care HEP Short Term Goal (STG) Pt will be educated in genital and vulvar self care. 03/03/24: Pt educated in genital and vulvar self care. STG Duration 2 wks-01/28/24 (03/03/24: MET GOAL) Halfway Goal (LTG) Pt will be independent in appropriate self care HEP of PF, hip & trunk stretches, and she will be able to self stretch her PF using a wand. 01/21/24: Pt issued XS wand for home PF stretching, and instructed in deep breathing. 01/28/24: HEP issued: Happy Baby Pose, Sphinx abdominal stretch and SL hip AD stretch. 02/11/24: HEP: Trunk rot & SB stretch 03/03/24: HEP: Child's Pose for LB/abdominal stretch. I/S pt in self MFR of abdomen, hip/abdominal/LB stretching, breath w/transfers; intercourse hips elevated. 04/07/24: I/S Log Scaler PF strengthening: Kegel w/Bridge 10 SH and quick reps. 04/14/24: I/S pt in neck rot/ ext stretch and vocalization for vagal n stim. 04/28/24: Issued handout for sexual activity positioning to try for orthopedic considerations w/verbal discussion of differing her or her partner position. LTG Duration 14 wks-07/18/24 progressed 04/29/24 Assessment Summary Assessment 33 yo female with pelvic pain during intercourse only w/deep thrust; and tightness of anterior PF & hip (hamstring, AD's & rotators IR>ER), lumbar tension, weakness of worship leader PF. Today, there was soft tissue restrction of R side of uterus and bladder. She breath holds and is tight in her abdominal muscles that may be causing her uterus to be dropped, resulting in pain on deep thrust with intercourse. Dysparenia only with deep thrust that is less with hips elevated. Physical Therapy Plan Frequency and Duration Frequency of Treatment 1x/Week Duration of treatment (weeks) 14 Plan of Care Start Date 04/07/24 Plan of Care End Date 07/18/24 Next Visit Focus/Plan Next Note Type Treatment Note Next Visit Plan Focus on abdominal manual therapy to lift uterus/bladder /small intestine to decrease pain with deep thrust. Core pressure mgmt review and training if needed. Stretch mechanics for uterus. EDUCATION: body mechanics for PF relaxation amd positioning with hips elevated 20' before intercourse. Discusse possible sidelie positioning. EXER: Add further Posterior PF strengthening for endurance with PF relax to end. Assisted stretches: Hip & trunk. POC: Pt education, Manual therapy (hips, PF, abdomen). Biofeedback if able to stretch enough to santos with vaginal sensor. Therapeutic Exercises, Therapeutic Activities
--- NOTE | 2024-05-09 16:21 | PT.OTN ---
Current Diagnoses Unspecified dyspareunia (05/09/24) Physical Therapy Treatment Note PT-OP-A Visit Information Start: 01/11/24 17:27 Freq: Status: Active Protocol: Document 05/09/24 13:05 LRN (Rec: 05/09/24 13:51 LRN [id number]) Out-Patient Physical Therapy Visit Information Visit Information Visit Type Treatment Note Visit Note 12 more approved PT visits (-07/23/24) Visit Start Time 13:05 Visit Stop Time 13:47 Visit Number 03/09 Evaluation Information Evaluation Date 01/14/24 Precautions Precautions None PT-OP-B Current Condition Start: 01/11/24 17:27 Freq: Status: Active Protocol: Document 01/14/24 08:20 LRN (Rec: 01/14/24 09:02 LRN [id number]) Current Condition History of Current Condition Onset Date 2 yrs ago Current Complaints Painful intercourse. History of Current Condition Pain during intercourse with spouse. Pt had no prior history of intercourse before marrage. Has referral to see gyno Dr. Marrero and was told ms needing to relax. 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 Prior Treatments and Tests None Developmental History Developmental History None Treatment Goals Patient/Caregiver Goals Pt goal with therapy: No pain with intercourse. Pt agreeable to a HEP and self care education. Personal Factors Other Personal Factors That May Effect None. Therapy/Recovery PT-OP-C Subjective Start: 01/11/24 17:27 Freq: Status: Active Protocol: Document 05/09/24 13:05 LRN (Rec: 05/09/24 13:51 LRN [id number]) OP-PT Subjective Patient Comments Patient Comments States she started doing brennen and tumeric tea and has made BM's softer and more regular and firm. [place], best position is missionary with pillows under hips and 3 days ago had pain 6 /10 vs 9/10 with deep thrust, the least amount of pain. Pt reports having had severe painful menstrual pain as youth, now because on control doesn't feel it. PT-OP-I Pelvic Floor Start: 01/11/24 17:27 Freq: Status: Active Protocol: Document 01/14/24 08:20 LRN (Rec: 01/14/24 09:02 LRN [id number]) Pelvic Floor Assessment Urine Other Urinary Symptoms None Bowel Bowel Movement Frequency 1/day [place] Stool Chart Comments Type 4 Pelvic Clock Pelvic Clock 12-3 Tenderness,Tightness Pelvic Clock 3-6 Tenderness,Tightness Pelvic Clock 6-9 Tenderness,Tightness Pelvic Clock 9-12 Tenderness,Tightness Pelvic Clock Other Redness at entire labia minora Prolapse Prolapse Comments Pt not able to tolerate digital palpation to assess for prolapse. Perineal Descent Resting Absent Bearing Absent Comments Pelvic Floor Comments Posterior PF assesment per anal sphincter palpation: Quick Contractions: 2 reps prior to fatigue. Long Hold contractions: Muscle endurance 2 secs. PT-OP-J Posture/Palpation/Skin Start: 01/11/24 17:27 Freq: Status: Active Protocol: Document 01/14/24 08:20 LRN (Rec: 01/14/24 09:02 LRN [id number]) Posture Evaluation Position Standing Head/C-Spine Posture Neutral Position T-Spine Posture Neutral L-Spine Posture Neutral Shoulder Posture Neutral Arm Posture (L) Neutral,(R) Neutral Pelvis Posture Anteriorly Tilted Weight Distribution Balanced Knee Posture (L) Neutral,(R) Neutral PT-OP-K Range of Motion Start: 01/11/24 17:27 Freq: Status: Active Protocol: Document 04/14/24 14:36 LRN (Rec: 04/14/24 15:26 LRN [id number]) Lumbar Spine Range of Motion Lumbar Spine Active Degrees Rotation Left 45 Rotation Right 45 Lateral Flexion Left 24 Lateral Flexion Right 23 PT-OP-M Strength Start: 01/11/24 17:27 Freq: Status: Active Protocol: Document 01/14/24 08:20 LRN (Rec: 01/14/24 09:02 LRN [id number]) Trunk Strength Trunk Manual Muscle Testing Core Stabilization Mild trunk rotation weakness demonstrated with LE MMT. Hip Strength Hip Manual Muscle Testing Right Comments LE strength is 5/5 Left External Rotation 4+ Good+ Comments LE strength is 5/5 except as indicated above. PT-OP-Q Treatments Start: 01/11/24 17:27 Freq: Status: Active Protocol: Document 05/09/24 13:05 LRN (Rec: 05/09/24 13:51 LRN [id number]) Therapeutic Exercises Supine Exercises Happy Baby Pose Supine Exercise Name Happy Baby Pose: Knees flexed and knee mildly straightened. Reps/Minutes 4' Comments Cued PPT & deep breath with stretch Sitting Exercises Piriformis stretch Side bilateral SL Hip AD stretch Sitting Exercise Name Inhale-reverse Kegel; exhale relax PF Side bilateral Reps/Minutes 4' Comments Cued breathing for PF stretch Manual Therapy Treatment Soft Tissue Mobilization Obturator Internus Body Location External stretch & with Miracle ball Mobilization Type Sustained Pressure Intensity/Depth Deep Body Position Hooklie & sit Self-Care/Home Management Treatment Education Other Education Discussed possible sidelie positioning to try for intercourse. Activities Self-Care/Home Management Activities Issued & reviewed HEP: Modified [place] for Deep hip ER stretch and Floor V-sit for hip AD stretch. Recommended pt obtain a Miracle Balls for Obturator Internus stretching. PT-OP-T Assessment and Plan Start: 01/11/24 17:27 Freq: Status: Active Protocol: Document 05/09/24 13:05 LRN (Rec: 05/09/24 13:51 LRN [id number]) Physical Therapy Assessment Goals Three Impairment Decreased posterior PF endurance of anal sphincter contraction (2 sec hold) Short Term Goal (STG) Pt will be educated in posterior PF strengthening ex' s to hold an anal sphincter contraction 5 secs prior to fatigue. 04/07/24: Kegel/Bridge long hold and quick contractions w/ focus on relaxation after strengthening. STG Duration 6 wks-05/19/24 progressed 04/07/24 Prison Goal (LTG) Pt will be able to hold an anal sphincter contraction 10 secs prior to fatigue LTG Duration 14 wks-07/18/24 Two Impairment Pain with intercourse Short Term Goal (STG) And will demonstrate awareness of how to relax her PF with deep breathing. 01/21/24: Training to relax PF with inhale of Deep Breathing. 02/11/24: Further training for reverse Kegel with breath during exercise. 04/07/24: Pt noting deep breathing was found to be helpful in reducing deep thrust pain, but pain present. 05/09/24: Pt able to relax her PF w/deep breathing and can feel the PF relax. STG Duration 6 wks-05/19/24 (05/09/24: MET GOAL) Isotope Hydrologist Goal (LTG) Pt will be able to tolerate intercourse with spouse with minimal to no pain. 02/11/24: Less pain with intercourse if stretching PF first. 03/03/24: Pain only with deep thrust, not with orgasm. 05/08/24: Least amount of pain she has had the last time of intercourse, pain 04/07 vs 910. LTG Duration 14 wks-07/18/24 progressed One Impairment Pt lacks appropriate self care HEP Short Term Goal (STG) Pt will be educated in genital and vulvar self care. 03/03/24: Pt educated in genital and vulvar self care. STG Duration 2 wks-01/28/24 (03/03/24: MET GOAL) Isotope Hydrologist Goal (LTG) Pt will be independent in appropriate self care HEP of PF, hip & trunk stretches, and she will be able to self stretch her PF using a wand. 01/21/24: Pt issued XS wand for home PF stretching, and instructed in deep breathing. 01/28/24: HEP issued: Happy Baby Pose, Sphinx abdominal stretch and SL hip AD stretch. 02/11/24: HEP: Trunk rot & SB stretch 03/03/24: HEP: Child's Pose for LB/abdominal stretch. I/S pt in self MFR of abdomen, hip/abdominal/LB stretching, breath w/transfers; intercourse hips elevated. 04/07/24: I/S Beater Operator PF strengthening: Kegel w/Bridge 10 SH and quick reps. 04/14/24: I/S pt in neck rot/ ext stretch and vocalization for vagal n stim. 04/28/24: Issued handout for sexual activity positioning to try for orthopedic considerations w/verbal discussion of differing her or her partner position. 05/09/24: HEP: Modified [place] for Deep hip ER stretch and Floor V-sit for hip AD stretch. Pt to get miracle balls for Obturator internus stretching. 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 Today, pt demonstrates Obturator tenderness but due to tight hip ms, was not able to maintain pressure for TrP release; therefore used Miracle Ball and was able to have pt self stretch at Obturator Internus. Pt pain with deep thrust may be possibly endometriosis related as her sister is currently suspect and being treated for endo. Pt has symptoms ( painful menstration) and her pain with deep thrust with intercourse has improved but not resolved. Some urinary leakage persists. Physical Therapy Plan Frequency and Duration Frequency of Treatment 1x/Week Duration of treatment (weeks) 14 Plan of Care Start Date 04/07/24 Plan of Care End Date 07/18/24 Other Referrals/Consults Referrals/Consults Recommended Recommend medical assessment for endometriosis (ex- ultrasound). Next Visit Focus/Plan Next Note Type Treatment Note Next Visit Plan Issue larger dilator for PF stretching if tolerated. Focus on abdominal manual therapy to stretch PF (for MAGGIE ) and Obturator; manual to lift uterus/bladder/small intestine to decrease pain with deep thrust. Core pressure mgmt review and training if needed. EXER: Add further Posterior PF strengthening for endurance with PF relax to end. POC: Pt education, Manual therapy (hips, PF, abdomen). Biofeedback if able to stretch enough to santos with vaginal sensor. Therapeutic Exercises, Therapeutic Activities
--- NOTE | 2024-06-19 17:40 | PT.OTN ---
Current Diagnoses Unspecified dyspareunia (06/19/24) Physical Therapy Treatment Note PT-OP-A Visit Information Start: 01/11/24 17:27 Freq: Status: Active Protocol: Document 06/19/24 07:32 LRN (Rec: 06/19/24 08:19 LRN [id number]) Out-Patient Physical Therapy Visit Information Visit Information Visit Type Treatment Note Visit Start Time 07:32 Visit Stop Time 08:13 Visit Number 04/09 Evaluation Information Evaluation Date 01/14/24 Precautions Precautions None PT-OP-B Current Condition Start: 01/11/24 17:27 Freq: Status: Active Protocol: Document 01/14/24 08:20 LRN (Rec: 01/14/24 09:02 LRN [id number]) Current Condition History of Current Condition Onset Date 2 yrs ago Current Complaints Painful intercourse. History of Current Condition Pain during intercourse with spouse. Pt had no prior history of intercourse before marrage. Has referral to see gyno Dr. Marrero and was told ms needing to relax. 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 Prior Treatments and Tests None Developmental History Developmental History None Treatment Goals Patient/Caregiver Goals Pt goal with therapy: No pain with intercourse. Pt agreeable to a HEP and self care education. Personal Factors Other Personal Factors That May Effect None. Therapy/Recovery PT-OP-C Subjective Start: 01/11/24 17:27 Freq: Status: Active Protocol: Document 06/19/24 07:32 LRN (Rec: 06/19/24 08:19 LRN [id number]) OP-PT Subjective Patient Comments Patient Comments Very improved as stretching ( happy baby and Iliopsoas, sphinx, and Piriformis) more before intercourse,and the breathting has been helpful. A big change is that she feels she has tweeked the R side under the sit bone for long periods of walking. PT-OP-I Pelvic Floor Start: 01/11/24 17:27 Freq: Status: Active Protocol: Document 01/14/24 08:20 LRN (Rec: 01/14/24 09:02 LRN [id number]) Pelvic Floor Assessment Urine Other Urinary Symptoms None Bowel Bowel Movement Frequency 1/day [place] Stool Chart Comments Type 4 Pelvic Clock Pelvic Clock 12-3 Tenderness,Tightness Pelvic Clock 3-6 Tenderness,Tightness Pelvic Clock 6-9 Tenderness,Tightness Pelvic Clock 9-12 Tenderness,Tightness Pelvic Clock Other Redness at entire labia minora Prolapse Prolapse Comments Pt not able to tolerate digital palpation to assess for prolapse. Perineal Descent Resting Absent Bearing Absent Comments Pelvic Floor Comments Posterior PF assesment per anal sphincter palpation: Quick Contractions: 2 reps prior to fatigue. Long Hold contractions: Muscle endurance 2 secs. PT-OP-J Posture/Palpation/Skin Start: 01/11/24 17:27 Freq: Status: Active Protocol: Document 01/14/24 08:20 LRN (Rec: 01/14/24 09:02 LRN [id number]) Posture Evaluation Position Standing Head/C-Spine Posture Neutral Position T-Spine Posture Neutral L-Spine Posture Neutral Shoulder Posture Neutral Arm Posture (L) Neutral,(R) Neutral Pelvis Posture Anteriorly Tilted Weight Distribution Balanced Knee Posture (L) Neutral,(R) Neutral PT-OP-K Range of Motion Start: 01/11/24 17:27 Freq: Status: Active Protocol: Document 04/14/24 14:36 LRN (Rec: 04/14/24 15:26 LRN [id number]) Lumbar Spine Range of Motion Lumbar Spine Active Degrees Rotation Left 45 Rotation Right 45 Lateral Flexion Left 24 Lateral Flexion Right 23 PT-OP-M Strength Start: 01/11/24 17:27 Freq: Status: Active Protocol: Document 01/14/24 08:20 LRN (Rec: 01/14/24 09:02 LRN [id number]) Trunk Strength Trunk Manual Muscle Testing Core Stabilization Mild trunk rotation weakness demonstrated with LE MMT. Hip Strength Hip Manual Muscle Testing Right Comments LE strength is 5/5 Left External Rotation 4+ Good+ Comments LE strength is 5/5 except as indicated above. PT-OP-Q Treatments Start: 01/11/24 17:27 Freq: Status: Active Protocol: Document 06/19/24 07:32 LRN (Rec: 06/19/24 08:19 LRN [id number]) Therapeutic Exercises Supine Exercises Piriformis stretch Supine Exercise Name Gentle stretch with hip ER passive stretch Manual Therapy Treatment Soft Tissue Mobilization Obturator Internus Body Location External stretch & with Miracle ball Mobilization Type Sustained Pressure Intensity/Depth Deep Body Position Hooklie & sit Manual Traction Lumbar Body Position Hooklying Reps/Duration 4' & 8' Comments + response with reduction in Obturator Internus pain and relaxation of muscle. Self-Care/Home Management Treatment Education Other Education Discussion of proper sitting posturing and LE positioning during sitting at work. Encouraged pt to sit evenly on ischial tubs and to control core positioning. Pt education in use of MH to lower low back for pain management for obturator pain and possibly levator ani pain. PT-OP-T Assessment and Plan Start: 01/11/24 17:27 Freq: Status: Active Protocol: Document 06/19/24 07:32 LRN (Rec: 06/19/24 08:19 LRN [id number]) Physical Therapy Assessment Goals Three Impairment Decreased posterior PF endurance of anal sphincter contraction (2 sec hold) Short Term Goal (STG) Pt will be educated in posterior PF strengthening ex' s to hold an anal sphincter contraction 5 secs prior to fatigue. 04/07/24: Kegel/Bridge long hold and quick contractions w/ focus on relaxation after strengthening. STG Duration 6 wks-05/19/24 progressed 04/07/24 Portainer Operator Goal (LTG) Pt will be able to hold an anal sphincter contraction 10 secs prior to fatigue LTG Duration 14 wks-07/18/24 Two Impairment Pain with intercourse Short Term Goal (STG) And will demonstrate awareness of how to relax her PF with deep breathing. 01/21/24: Training to relax PF with inhale of Deep Breathing. 02/11/24: Further training for reverse Kegel with breath during exercise. 04/07/24: Pt noting deep breathing was found to be helpful in reducing deep thrust pain, but pain present. 05/09/24: Pt able to relax her PF w/deep breathing and can feel the PF relax. STG Duration 6 wks-05/19/24 (05/09/24: MET GOAL) Usp Goal (LTG) Pt will be able to tolerate intercourse with spouse with minimal to no pain. 02/11/24: Less pain with intercourse if stretching PF first. 03/03/24: Pain only with deep thrust, not with orgasm. 05/08/24: Least amount of pain she has had the last time of intercourse, pain 6/10 vs 9/10. LTG Duration 14 wks-07/18/24 progressed One Impairment Pt lacks appropriate self care HEP Short Term Goal (STG) Pt will be educated in genital and vulvar self care. 03/03/24: Pt educated in genital and vulvar self care. STG Duration 2 wks-01/28/24 (03/03/24: MET GOAL) Portainer Operator Goal (LTG) Pt will be independent in appropriate self care HEP of PF, hip & trunk stretches, and she will be able to self stretch her PF using a wand. 01/21/24: Pt issued XS wand for home PF stretching, and instructed in deep breathing. 01/28/24: HEP issued: Happy Baby Pose, Sphinx abdominal stretch and SL hip AD stretch. 02/11/24: HEP: Trunk rot & SB stretch 03/03/24: HEP: Child's Pose for LB/abdominal stretch. I/S pt in self MFR of abdomen, hip/abdominal/LB stretching, breath w/transfers; intercourse hips elevated. 04/07/24: I/S [place] PF strengthening: Kegel w/Bridge 10 SH and quick reps. 04/14/24: I/S pt in neck rot/ ext stretch and vocalization for vagal n stim. 04/28/24: Issued handout for sexual activity positioning to try for orthopedic considerations w/verbal discussion of differing her or her partner position. 05/09/24: HEP: Modified [place] for Deep hip ER stretch and Floor V-sit for hip AD stretch. Pt to get miracle balls for Obturator internus stretching. 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 Today pt had + response to manual lumbar traction & ending with MH to the sacral region and relaxation/rest with decreased R ischial tub pain. Pt appears to be posturing in sitting with knees crossed and leaning to one side when sitting on R ischial tuberosity. Pt may also be overstretching causing nerve irritation. Pt to be less aggressive with stretching and to use MH to reduce sit pain. Physical Therapy Plan Frequency and Duration Frequency of Treatment 1x/Week Duration of treatment (weeks) 14 Plan of Care Start Date 04/07/24 Plan of Care End Date 07/18/24 Next Visit Focus/Plan Next Note Type Treatment Note Next Visit Plan Assess response to reduction of stretching and us of MH to sacral region. Issue larger dilator for PF stretching if tolerated. Focus on abdominal manual therapy to stretch PF (for MAGGIE) and Obturator; manual to lift uterus/bladder/ small intestine to decrease pain with deep thrust. Core pressure mgmt review and training if needed. EXER: Add further Posterior PF strengthening for endurance with PF relax to end. POC: Pt education, Manual therapy (hips, PF, abdomen). Biofeedback if able to stretch enough to santos with vaginal sensor. Therapeutic Exercises, Therapeutic Activities
--- NOTE | 2024-06-27 15:44 | PT.OTN ---
Current Diagnoses Unspecified dyspareunia (06/27/24) Physical Therapy Treatment Note PT-OP-A Visit Information Start: 01/11/24 17:27 Freq: Status: Active Protocol: Document 06/27/24 07:33 LRN (Rec: 06/27/24 08:22 LRN [id number]) Out-Patient Physical Therapy Visit Information Visit Information Visit Type Treatment Note Visit Start Time 07:34 Visit Stop Time 08:19 Visit Number 05/09 Evaluation Information Evaluation Date 01/14/24 Precautions Precautions None PT-OP-B Current Condition Start: 01/11/24 17:27 Freq: Status: Active Protocol: Document 01/14/24 08:20 LRN (Rec: 01/14/24 09:02 LRN [id number]) Current Condition History of Current Condition Onset Date 2 yrs ago Current Complaints Painful intercourse. History of Current Condition Pain during intercourse with spouse. Pt had no prior history of intercourse before marrage. Has referral to see gyno Dr. Marrero and was told ms needing to relax. 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 Prior Treatments and Tests None Developmental History Developmental History None Treatment Goals Patient/Caregiver Goals Pt goal with therapy: No pain with intercourse. Pt agreeable to a HEP and self care education. Personal Factors Other Personal Factors That May Effect None. Therapy/Recovery PT-OP-C Subjective Start: 01/11/24 17:27 Freq: Status: Active Protocol: Document 06/27/24 07:33 LRN (Rec: 06/27/24 08:22 LRN [id number]) OP-PT Subjective Patient Comments Patient Comments Back is fine but has pain in lower low back mus in buttock. Has chnaged her sitting to not cross legs. Doing short dog walks. PT-OP-I Pelvic Floor Start: 01/11/24 17:27 Freq: Status: Active Protocol: Document 01/14/24 08:20 LRN (Rec: 01/14/24 09:02 LRN [id number]) Pelvic Floor Assessment Urine Other Urinary Symptoms None Bowel Bowel Movement Frequency 1/day [place] Stool Chart Comments Type 4 Pelvic Clock Pelvic Clock 12-3 Tenderness,Tightness Pelvic Clock 3-6 Tenderness,Tightness Pelvic Clock 6-9 Tenderness,Tightness Pelvic Clock 9-12 Tenderness,Tightness Pelvic Clock Other Redness at entire labia minora Prolapse Prolapse Comments Pt not able to tolerate digital palpation to assess for prolapse. Perineal Descent Resting Absent Bearing Absent Comments Pelvic Floor Comments Posterior PF assesment per anal sphincter palpation: Quick Contractions: 2 reps prior to fatigue. Long Hold contractions: Muscle endurance 2 secs. PT-OP-J Posture/Palpation/Skin Start: 01/11/24 17:27 Freq: Status: Active Protocol: Document 01/14/24 08:20 LRN (Rec: 01/14/24 09:02 LRN [id number]) Posture Evaluation Position Standing Head/C-Spine Posture Neutral Position T-Spine Posture Neutral L-Spine Posture Neutral Shoulder Posture Neutral Arm Posture (L) Neutral,(R) Neutral Pelvis Posture Anteriorly Tilted Weight Distribution Balanced Knee Posture (L) Neutral,(R) Neutral PT-OP-K Range of Motion Start: 01/11/24 17:27 Freq: Status: Active Protocol: Document 04/14/24 14:36 LRN (Rec: 04/14/24 15:26 LRN [id number]) Lumbar Spine Range of Motion Lumbar Spine Active Degrees Rotation Left 45 Rotation Right 45 Lateral Flexion Left 24 Lateral Flexion Right 23 PT-OP-M Strength Start: 01/11/24 17:27 Freq: Status: Active Protocol: Document 01/14/24 08:20 LRN (Rec: 01/14/24 09:02 LRN [id number]) Trunk Strength Trunk Manual Muscle Testing Core Stabilization Mild trunk rotation weakness demonstrated with LE MMT. Hip Strength Hip Manual Muscle Testing Right Comments LE strength is 5/5 Left External Rotation 4+ Good+ Comments LE strength is 5/5 except as indicated above. PT-OP-Q Treatments Start: 01/11/24 17:27 Freq: Status: Active Protocol: Document 06/27/24 07:33 LRN (Rec: 06/27/24 08:22 LRN [id number]) Manual Therapy Treatment Soft Tissue Mobilization Sacral balancing Body Location Sacrum/L innominate Mobilization Type Sustained Pressure Intensity/Depth Moderate Body Position Prone & supine Comments L Sacral Sulcus PA L Sacral Sulcus inferior glide L CAT PA R Ischial Tub PA 6 pt balancing R Pubic Rami superior glide Self-Care/Home Management Treatment Education Other Education Educated in nighttime posturing and positions to avoid (R leg crossed over L, partial L sidelie). Activities Self-Care/Home Management Activities Issued & reviewed: self treatment correction for L inflare. I/S pt to daily lie on back with hips elevated for pelvic organ repositioning. PT-OP-T Assessment and Plan Start: 01/11/24 17:27 Freq: Status: Active Protocol: Document 06/27/24 07:33 LRN (Rec: 06/27/24 08:22 LRN [id number]) Physical Therapy Assessment Goals Three Impairment Decreased posterior PF endurance of anal sphincter contraction (2 sec hold) Short Term Goal (STG) Pt will be educated in posterior PF strengthening ex' s to hold an anal sphincter contraction 5 secs prior to fatigue. 04/07/24: Kegel/Bridge long hold and quick contractions w/ focus on relaxation after strengthening. STG Duration 6 wks-05/19/24 progressed 04/07/24 Care Home Goal (LTG) Pt will be able to hold an anal sphincter contraction 10 secs prior to fatigue LTG Duration 14 wks-07/18/24 Two Impairment Pain with intercourse Short Term Goal (STG) And will demonstrate awareness of how to relax her PF with deep breathing. 01/21/24: Training to relax PF with inhale of Deep Breathing. 02/11/24: Further training for reverse Kegel with breath during exercise. 04/07/24: Pt noting deep breathing was found to be helpful in reducing deep thrust pain, but pain present. 05/09/24: Pt able to relax her PF w/deep breathing and can feel the PF relax. STG Duration 6 wks-05/19/24 (05/09/24: MET GOAL) Movie Actor Goal (LTG) Pt will be able to tolerate intercourse with spouse with minimal to no pain. 02/11/24: Less pain with intercourse if stretching PF first. 03/03/24: Pain only with deep thrust, not with orgasm. 05/08/24: Least amount of pain she has had the last time of intercourse, pain 04/07 vs 07/08. LTG Duration 14 wks-07/18/24 progressed One Impairment Pt lacks appropriate self care HEP Short Term Goal (STG) Pt will be educated in genital and vulvar self care. 03/03/24: Pt educated in genital and vulvar self care. STG Duration 2 wks-01/28/24 (03/03/24: MET GOAL) Care Home Goal (LTG) Pt will be independent in appropriate self care HEP of PF, hip & trunk stretches, and she will be able to self stretch her PF using a wand. 01/21/24: Pt issued XS wand for home PF stretching, and instructed in deep breathing. 01/28/24: HEP issued: Happy Baby Pose, Sphinx abdominal stretch and SL hip AD stretch. 02/11/24: HEP: Trunk rot & SB stretch 03/03/24: HEP: Child's Pose for LB/abdominal stretch. I/S pt in self MFR of abdomen, hip/abdominal/LB stretching, breath w/transfers; intercourse hips elevated. 04/07/24: I/S Web Graphic Designer PF strengthening: Kegel w/Bridge 10 SH and quick reps. 04/14/24: I/S pt in neck rot/ ext stretch and vocalization for vagal n stim. 04/28/24: Issued handout for sexual activity positioning to try for orthopedic considerations w/verbal discussion of differing her or her partner position. 05/09/24: HEP: Modified [place] for Deep hip ER stretch and Floor V-sit for hip AD stretch. Pt to get miracle balls for Obturator internus stretching. LTG Duration 14 wks-07/18/24 progressed 05/09/24 Assessment Summary Assessment 33 yo female with pelvic pain during intercourse w/deep thrust; tightness of anterior PF & hip ms (hamstring, AD's & IR>ER rotators), lumbar tension, weakness of configuration management architect PF . Today, pt presents with inflare L innominate, corrected by Sacral balancing and JMT. Pt shown self correction technique and appeared to have a good understanding. Spouse has not been around; therefore unknown if pain with intercourse. Pt needing to lift uterus. Physical Therapy Plan Frequency and Duration Frequency of Treatment 1x/Week Duration of treatment (weeks) 14 Plan of Care Start Date 04/07/24 Plan of Care End Date 07/18/24 Next Visit Focus/Plan Next Note Type Treatment Note Next Visit Plan Assess response to Sacral balancing and treat Ilipsoas if needed. Assess again response to reduction of stretching and us of MH to sacral region. Issue larger dilator for PF stretching if tolerated. Focus on abdominal manual therapy to stretch PF (for MAGGIE ) and Obturator; manual to lift uterus/bladder/small intestine to decrease pain with deep thrust. Core pressure mgmt review and training if needed. EXER: Add further Posterior PF strengthening for endurance with PF relax to end.
--- NOTE | 2024-07-11 18:12 | PT.OTN ---
Current Diagnoses Unspecified dyspareunia (07/11/24) Physical Therapy Treatment Note PT-OP-A Visit Information Start: 01/11/24 17:27 Freq: Status: Active Protocol: Document 07/11/24 08:56 LRN (Rec: 07/11/24 09:50 LRN [id number]) Out-Patient Physical Therapy Visit Information Visit Information Visit Type Progress Note Visit Start Time 08:56 Visit Stop Time 09:49 Visit Number 06/09 Evaluation Information Evaluation Date 01/14/24 Precautions Precautions None PT-OP-B Current Condition Start: 01/11/24 17:27 Freq: Status: Active Protocol: Document 01/14/24 08:20 LRN (Rec: 01/14/24 09:02 LRN [id number]) Current Condition History of Current Condition Onset Date 2 yrs ago Current Complaints Painful intercourse. History of Current Condition Pain during intercourse with spouse. Pt had no prior history of intercourse before marrage. Has referral to see gyno Dr. Marrero and was told ms needing to relax. 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 Prior Treatments and Tests None Developmental History Developmental History None Treatment Goals Patient/Caregiver Goals Pt goal with therapy: No pain with intercourse. Pt agreeable to a HEP and self care education. Personal Factors Other Personal Factors That May Effect None. Therapy/Recovery PT-OP-C Subjective Start: 01/11/24 17:27 Freq: Status: Active Protocol: Document 07/11/24 08:56 LRN (Rec: 07/11/24 09:50 LRN [id number]) OP-PT Subjective Patient Comments Patient Comments States w/ intercourese the pain is the same. Back is better after last session, pain in L hip is still there but less noticeable. PT-OP-I Pelvic Floor Start: 01/11/24 17:27 Freq: Status: Active Protocol: Document 01/14/24 08:20 LRN (Rec: 01/14/24 09:02 LRN [id number]) Pelvic Floor Assessment Urine Other Urinary Symptoms None Bowel Bowel Movement Frequency 1/day [place] Stool Chart Comments Type 4 Pelvic Clock Pelvic Clock 12-3 Tenderness,Tightness Pelvic Clock 3-6 Tenderness,Tightness Pelvic Clock 6-9 Tenderness,Tightness Pelvic Clock 9-12 Tenderness,Tightness Pelvic Clock Other Redness at entire labia minora Prolapse Prolapse Comments Pt not able to tolerate digital palpation to assess for prolapse. Perineal Descent Resting Absent Bearing Absent Comments Pelvic Floor Comments Posterior PF assesment per anal sphincter palpation: Quick Contractions: 2 reps prior to fatigue. Long Hold contractions: Muscle endurance 2 secs. PT-OP-J Posture/Palpation/Skin Start: 01/11/24 17:27 Freq: Status: Active Protocol: Document 01/14/24 08:20 LRN (Rec: 01/14/24 09:02 LRN [id number]) Posture Evaluation Position Standing Head/C-Spine Posture Neutral Position T-Spine Posture Neutral L-Spine Posture Neutral Shoulder Posture Neutral Arm Posture (L) Neutral,(R) Neutral Pelvis Posture Anteriorly Tilted Weight Distribution Balanced Knee Posture (L) Neutral,(R) Neutral PT-OP-K Range of Motion Start: 01/11/24 17:27 Freq: Status: Active Protocol: Document 07/11/24 08:56 LRN (Rec: 07/11/24 09:50 LRN [id number]) Hip Goniometric Range of Motion Hip Right Passive Internal Rotation 25 External Rotation 55 Left Passive Internal Rotation 15 External Rotation 60 PT-OP-M Strength Start: 01/11/24 17:27 Freq: Status: Active Protocol: Document 01/14/24 08:20 LRN (Rec: 01/14/24 09:02 LRN [id number]) Trunk Strength Trunk Manual Muscle Testing Core Stabilization Mild trunk rotation weakness demonstrated with LE MMT. Hip Strength Hip Manual Muscle Testing Right Comments LE strength is 5/5 Left External Rotation 4+ Good+ Comments LE strength is 5/5 except as indicated above. PT-OP-Q Treatments Start: 01/11/24 17:27 Freq: Status: Active Protocol: Document 07/11/24 08:56 LRN (Rec: 07/11/24 09:50 LRN [id number]) Therapeutic Exercises Supine Exercises Happy Baby Pose Supine Exercise Name Happy Baby Reps/Minutes 2' Lateral Hip stretch Supine Exercise Name Lateral Hip stretch Side bilateral Reps/Minutes 4' Comments Little groin stretch and initially at posterior hip. Piriformis stretch Supine Exercise Name Piriformis stretch (ankle over knee>KTC) Side bilateral Reps/Minutes 4' Comments No pain or discomfort Sitting Exercises Sitting fig 4 stretch Side right Reps/Minutes 4' Comments Xtra time to determine posturing for stretch Piriformis stretch Side left Reps/Minutes 5' Comments Xtra time to determining correct posture and max santos stretch Manual Therapy Treatment Soft Tissue Mobilization Vagus nerve stim Body Location [place] Subocciptal and at lateral borders of trachea Comments Positioning for manual treatment: Supine with mild chin tuck, neck SB and opp side rotation. Self-Care/Home Management Treatment Education Other Education Discussed use of expandable vaginal dilator (Lilli device) for PF stretching for pt to check online if she wants to consider it. Discussed goals, treatment, and plan of care (POC) with pt , pt agreeable to goals, treatment, and POC Activities Self-Care/Home Management Activities Issued & reviewed handout for Lilli for pt to consider purchasing for PF stretching. Issued medium dialator for PF stretching, as XS dilator has become too small. PT-OP-T Assessment and Plan Start: 01/11/24 17:27 Freq: Status: Active Protocol: Document 07/11/24 08:56 LRN (Rec: 07/11/24 09:50 LRN [id number]) Physical Therapy Assessment Rehab Potential Rehabilitation Potential Good Evaluation Complexity Number of Personal Factors/Comorbidities 0 Number of Body Systems Impaired 4 or More Clinical Presentation at Evaluation Evolving Impairments Impairments Activity Tolerance,Pain,ROM, Soft Tissue Mobility,Strength Goals Three Impairment Decreased posterior PF endurance of anal sphincter contraction (2 sec hold) Short Term Goal (STG) Pt will be educated in posterior PF strengthening ex' s to hold an anal sphincter contraction 5 secs prior to fatigue. 04/07/24: Kegel/Bridge long hold and quick contractions w/ focus on relaxation after strengthening. 07/11/24: Pt feels she is able to hold her PF contraction for 5 secs. STG Duration 05/19/24 (07/11/24: MET GOAL) Division Operations Manager Goal (LTG) Pt will be able to hold an anal sphincter contraction 10 secs prior to fatigue LTG Duration 10/31/24 Two Impairment Pain with intercourse Short Term Goal (STG) And will demonstrate awareness of how to relax her PF with deep breathing. 01/21/24: Training to relax PF with inhale of Deep Breathing. 02/11/24: Further training for reverse Kegel with breath during exercise. 04/07/24: Pt noting deep breathing was found to be helpful in reducing deep thrust pain, but pain present. 05/09/24: Pt able to relax her PF w/deep breathing and can feel the PF relax. STG Duration 05/19/24 (05/09/24: MET GOAL) Assisted Goal (LTG) Pt will be able to tolerate intercourse with spouse with minimal to no pain. 02/11/24: Less pain with intercourse if stretching PF first. 03/03/24: Pain only with deep thrust, not with orgasm. 05/08/24: Least amount of pain she has had the last time of intercourse, pain 04/07 vs 07/08. LTG Duration 10/31/24 progressed 05/09/24 One Impairment Pt lacks appropriate self care HEP Short Term Goal (STG) Pt will be educated in genital and vulvar self care. 03/03/24: Pt educated in genital and vulvar self care. STG Duration 01/28/24 (03/03/24: MET GOAL) Division Operations Manager Goal (LTG) Pt will be independent in appropriate self care HEP of PF, hip & trunk stretches, and she will be able to self stretch her PF using a wand. 01/21/24: Pt issued XS wand for home PF stretching, and instructed in deep breathing. 01/28/24: HEP issued: Happy Baby Pose, Sphinx abdominal stretch and SL hip AD stretch. 02/11/24: HEP: Trunk rot & SB stretch 03/03/24: HEP: Child's Pose for LB/abdominal stretch. I/S pt in self MFR of abdomen, hip/abdominal/LB stretching, breath w/transfers; intercourse hips elevated. 04/07/24: I/S Loan Services Professional PF strengthening: Kegel w/Bridge 10 SH and quick reps. 04/14/24: I/S pt in neck rot/ ext stretch and vocalization for vagal n stim. 04/28/24: Issued handout for sexual activity positioning to try for orthopedic considerations w/verbal discussion of differing her or her partner position. 05/09/24: HEP: Modified [place] for Deep hip ER stretch and Floor V-sit for hip AD stretch. Pt to get miracle balls for Obturator internus stretching. 07/11/24: Pt I/S in HEP: Laying Pillows under hips for 10' 1-2x/night for PF stretching/MFR and using relaxation techniques of deep breathing and mindfulness. Added today cervical positioining for vagus n. stim to help promote parasympathetic stim. LTG Duration 10/31/24 progressed 07/11/24 Assessment Summary Assessment Pt is a 33 yo female with pelvic pain during intercourse w/deep thrust. Her anterior PF tightness is less and the pt is now able to tolerate a larger dilator for greater stretching at end of vaginal canal. The pt has less tightness of hip ms (IR>ER rotators). She has lumbar tension/discomfort and weakness of lockstitch shoulder joiner PF, although improving. The pt's last progress report was on and because of difficulty with the pt being able to schedule in clinic due to scheduling difficulties and and her flight schdule, the pt has only been see 3 times in the past 3 months; therefore her progress has been slow. Recently she was been able to find some relief of her bilateral LB/hip pain ( less pain during the day) since her last session and today was advanced in her self nursing home program. The pt would benefit from further skilled physical therapy for further manual therapy (JMT, STM, other manual treaments), therapeutic ex and therapeutic activities, neuro-reeducation for coordination activities of breathing/relaxation/exer or daily activities, pt education, self care progression. Biofeedback training would probably prove to be helpful, but is not coveraged by insurance; therefore pt is choosing to be treated with neuro- reeducation and exercise instead. Physical Therapy Plan Frequency and Duration Frequency of Treatment 1x/Week Duration of treatment (weeks) 16 Plan of Care Start Date 07/11/24 Plan of Care End Date 10/31/24 Therapeutic Interventions Therapeutic Interventions Home Exercise Program,Joint Mobilizations,Manual Therapy, Neuromuscular Re-education, Self-Care/Home Management,Soft Tissue Mobilization, Therapeutic Activities, Therapeutic Exercises Modalities Electric Stimulation Other Therapeutic Interventions I would recommend biofeedback, but it must be approved by the pt's insurance before pt would be agreeable for use because of financial constraints otherwise. Next Visit Focus/Plan Next Note Type Treatment Note Next Visit Plan Assess again response to PF stretching with supine positioning/vagus n stim/use of medium dilator, and use of MH to sacral region. Assess mobility of hamstring/AD's, and posterior PF (strength/ endurance). Discuss if interested in Lilli. Focus on abdominal manual therapy to stretch PF (for MAGGIE ) and Obturator; manual to lift uterus/bladder/small intestine to decrease pain with deep thrust. Core pressure mgmt review and training if needed. EXER: Add further Posterior PF strengthening for endurance with PF relax to end.
--- NOTE | 2024-07-21 08:49 | PT.OTN ---
Current Diagnoses Unspecified dyspareunia (07/21/24) Physical Therapy Treatment Note PT-OP-A Visit Information Start: 01/11/24 17:27 Freq: Status: Active Protocol: Document 07/21/24 07:33 LRN (Rec: 07/21/24 08:17 LRN [id number]) Out-Patient Physical Therapy Visit Information Visit Information Visit Type Treatment Note Visit Start Time 07:33 Visit Stop Time 08:17 Visit Number 07/10 Evaluation Information Evaluation Date 01/14/24 Precautions Precautions None PT-OP-B Current Condition Start: 01/11/24 17:27 Freq: Status: Active Protocol: Document 01/14/24 08:20 LRN (Rec: 01/14/24 09:02 LRN [id number]) Current Condition History of Current Condition Onset Date 2 yrs ago Current Complaints Painful intercourse. History of Current Condition Pain during intercourse with spouse. Pt had no prior history of intercourse before marrage. Has referral to see gyno Dr. Marrero and was told ms needing to relax. 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 Prior Treatments and Tests None Developmental History Developmental History None Treatment Goals Patient/Caregiver Goals Pt goal with therapy: No pain with intercourse. Pt agreeable to a HEP and self care education. Personal Factors Other Personal Factors That May Effect None. Therapy/Recovery PT-OP-C Subjective Start: 01/11/24 17:27 Freq: Status: Active Protocol: Document 07/21/24 07:33 LRN (Rec: 07/21/24 08:17 LRN [id number]) OP-PT Subjective Patient Comments Patient Comments States she did the laying down w/hips up decreased pain from 3-4/10 from initial 8-9/10. Didn't use the medium sized wand, totally spaced it out. No stress incontinence. PT-OP-I Pelvic Floor Start: 01/11/24 17:27 Freq: Status: Active Protocol: Document 01/14/24 08:20 LRN (Rec: 01/14/24 09:02 LRN [id number]) Pelvic Floor Assessment Urine Other Urinary Symptoms None Bowel Bowel Movement Frequency 1/day [place] Stool Chart Comments Type 4 Pelvic Clock Pelvic Clock 12-3 Tenderness,Tightness Pelvic Clock 3-6 Tenderness,Tightness Pelvic Clock 6-9 Tenderness,Tightness Pelvic Clock 9-12 Tenderness,Tightness Pelvic Clock Other Redness at entire labia minora Prolapse Prolapse Comments Pt not able to tolerate digital palpation to assess for prolapse. Perineal Descent Resting Absent Bearing Absent Comments Pelvic Floor Comments Posterior PF assesment per anal sphincter palpation: Quick Contractions: 2 reps prior to fatigue. Long Hold contractions: Muscle endurance 2 secs. PT-OP-J Posture/Palpation/Skin Start: 01/11/24 17:27 Freq: Status: Active Protocol: Document 01/14/24 08:20 LRN (Rec: 01/14/24 09:02 LRN [id number]) Posture Evaluation Position Standing Head/C-Spine Posture Neutral Position T-Spine Posture Neutral L-Spine Posture Neutral Shoulder Posture Neutral Arm Posture (L) Neutral,(R) Neutral Pelvis Posture Anteriorly Tilted Weight Distribution Balanced Knee Posture (L) Neutral,(R) Neutral PT-OP-K Range of Motion Start: 01/11/24 17:27 Freq: Status: Active Protocol: Document 07/21/24 07:33 LRN (Rec: 07/21/24 08:17 LRN [id number]) Hip Goniometric Range of Motion Hip Right Passive Testing Position Supine Straight Leg Raise 70 Abduction 33 Internal Rotation 30 External Rotation 65 Left Passive Testing Position Supine Straight Leg Raise 70 Abduction 35 Internal Rotation 22 External Rotation 65 PT-OP-M Strength Start: 01/11/24 17:27 Freq: Status: Active Protocol: Document 01/14/24 08:20 LRN (Rec: 01/14/24 09:02 LRN [id number]) Trunk Strength Trunk Manual Muscle Testing Core Stabilization Mild trunk rotation weakness demonstrated with LE MMT. Hip Strength Hip Manual Muscle Testing Right Comments LE strength is 5/5 Left External Rotation 4+ Good+ Comments LE strength is 5/5 except as indicated above. PT-OP-Q Treatments Start: 01/11/24 17:27 Freq: Status: Active Protocol: Document 07/21/24 07:33 LRN (Rec: 07/21/24 08:17 LRN [id number]) Therapeutic Exercises Supine Exercises Happy Baby Pose Supine Exercise Name Happy Baby Reps/Minutes 2' Lateral Hip stretch Supine Exercise Name Lateral Hip stretch Side bilateral Reps/Minutes 4' Comments Little groin stretch and initially at posterior hip. Sitting Exercises SL Hip AD stretch Sitting Exercise Name Inhale-reverse Kegel; exhale relax PF Side bilateral Reps/Minutes 4' Comments Cued breathing for PF stretch Manual Therapy Treatment Soft Tissue Mobilization Vagus nerve stim Body Location Blayne Subocciptal and at lateral borders of trachea Mobilization Type Strumming Body Position [place] w/bolster Comments Positioning for manual treatment: Supine with mild chin tuck, neck L SB and opp side (R) rotation. PT-OP-T Assessment and Plan Start: 01/11/24 17:27 Freq: Status: Active Protocol: Document 07/21/24 07:33 LRN (Rec: 07/21/24 08:17 LRN [id number]) Physical Therapy Assessment Goals Three Impairment Decreased posterior PF endurance of anal sphincter contraction (2 sec hold) Short Term Goal (STG) Pt will be educated in posterior PF strengthening ex' s to hold an anal sphincter contraction 5 secs prior to fatigue. 04/07/24: Kegel/Bridge long hold and quick contractions w/ focus on relaxation after strengthening. 07/11/24: Pt feels she is able to hold her PF contraction for 5 secs. STG Duration 05/19/24 (07/11/24: MET GOAL) Mechanical Apprentice Goal (LTG) Pt will be able to hold an anal sphincter contraction 10 secs prior to fatigue. 07/21/24: Pt deferred asessing today due to GI upset . LTG Duration 10/31/24 Two Impairment Pain with intercourse Short Term Goal (STG) And will demonstrate awareness of how to relax her PF with deep breathing. 01/21/24: Training to relax PF with inhale of Deep Breathing. 02/11/24: Further training for reverse Kegel with breath during exercise. 04/07/24: Pt noting deep breathing was found to be helpful in reducing deep thrust pain, but pain present. 05/09/24: Pt able to relax her PF w/deep breathing and can feel the PF relax. STG Duration 05/19/24 (05/09/24: MET GOAL) Residential Goal (LTG) Pt will be able to tolerate intercourse with spouse with minimal (2/10) to no pain. 02/11/24: Less pain with intercourse if stretching PF first. 03/03/24: Pain only with deep thrust, not with orgasm. 05/08/24: Least amount of pain she has had the last time of intercourse, pain /10 vs 910. 07/21/24: Pain with intercourse (tried once) was 3 -4/10. LTG Duration 10/31/24 (07/21/24: Improved , not met goal) One Impairment Pt lacks appropriate self care HEP Short Term Goal (STG) Pt will be educated in genital and vulvar self care. 03/03/24: Pt educated in genital and vulvar self care. STG Duration 01/28/24 (03/03/24: MET GOAL) Residential Goal (LTG) Pt will be independent in appropriate self care HEP of PF, hip & trunk stretches, and she will be able to self stretch her PF using a wand. 01/21/24: Pt issued XS wand for home PF stretching, and instructed in deep breathing. 01/28/24: HEP issued: Happy Baby Pose, Sphinx abdominal stretch and SL hip AD stretch. 02/11/24: HEP: Trunk rot & SB stretch 03/03/24: HEP: Child's Pose for LB/abdominal stretch. I/S pt in self MFR of abdomen, hip/abdominal/LB stretching, breath w/transfers; intercourse hips elevated. 04/07/24: I/S Guidance Director PF strengthening: Kegel w/Bridge 10 SH and quick reps. 04/14/24: I/S pt in neck rot/ ext stretch and vocalization for vagal n stim. 04/28/24: Issued handout for sexual activity positioning to try for orthopedic considerations w/verbal discussion of differing her or her partner position. 05/09/24: HEP: Modified [place] for Deep hip ER stretch and Floor V-sit for hip AD stretch. Pt to get miracle balls for Obturator internus stretching. 07/11/24: Pt I/S in HEP: Laying Pillows under hips for 10' 1-2x/night for PF stretching/MFR and using relaxation techniques of deep breathing and mindfulness. Added today cervical positioining for vagus n. stim to help promote parasympathetic stim. 07/21/24: Pt to focus on improving L hip IR & hamstring mobility Hip ER symmetrical with measurement, but felt tight on R hip. I/S pt in vagus nerve positional stretch today for R side and then to do both while doing PF positional stretch. LTG Duration 10/31/24 (07/11/24: progressed). Assessment Summary Assessment Pt is a 33 yo female with pelvic pain during intercourse w/deep thrust and initially with anal spincter endurance weakness. + response to vagus n stretching after last session with pt more relaxed afterwards. Pt hip left IR & blayne hamstrings are tight compared to opp side, hip ER is mildly tight on R side. Pt pain with intercourse is less with HEP stretch using gravity to assist stretch ( laying supine, hips on pillows ). 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 Physical Therapy Plan Frequency and Duration Frequency of Treatment 1x/Week Duration of treatment (weeks) 16 Plan of Care Start Date 07/11/24 Plan of Care End Date 10/31/24 Next Visit Focus/Plan Next Note Type Treatment Note Next Visit Plan DC to HEP, if pt not able to get an appt next week to assess posterior PF (endurance /strength) and response to PF stretching with medium dilator (vs xtra small), then DC to HEP at end of week per pt request. Core pressure mgmt review and training if needed. HEP: If needed add to HEP, Posterior PF strengthening for anal endurance, and PF relaxation to end. Last treatment with focus on DC & time permitting, abdominal manual therapy (lift uterus/bladder/small intestine) to stretch PF (for MAGGIE) and Obturator.
--- NOTE | 2024-07-21 16:50 | PT-OP ANOTE ---
After review of pt's records, her insurance coverage is until 07/23/24; therefore pt will not be able to be seen next week unless extension is received. Pt feels she is ready for discharge from therapy and prefers DC to HEP; therefore it was agreed pt will be discharged today from therapy.
--- NOTE | 2024-07-21 17:00 | PT.OPDS ---
Current Diagnoses Unspecified dyspareunia (07/21/24) Visit Care Team Role Provider Type Tara Bernal DO Attending Provider Non-Staff Family Provider Primary Care Provider Referring Provider Specialty: Family Practice Address: [address] [place] [address], [id number] Email: Visit Number Visit Number 07/10 Discharge Summary PT-OP-B Current Condition Start: 01/11/24 17:27 Freq: Status: Active Protocol: Document 01/14/24 08:20 LRN (Rec: 01/14/24 09:02 LRN [id number]) Current Condition History of Current Condition Onset Date 2 yrs ago Current Complaints Painful intercourse. History of Current Condition Pain during intercourse with spouse. Pt had no prior history of intercourse before decrag. Has referral to see gyno Dr. Marrero and was told ms needing to relax. 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 Prior Treatments and Tests None Developmental History Developmental History None Treatment Goals Patient/Caregiver Goals Pt goal with therapy: No pain with intercourse. Pt agreeable to a HEP and self care education. Personal Factors Other Personal Factors That May Effect None. Therapy/Recovery PT-OP-C Subjective Start: 01/11/24 17:27 Freq: Status: Active Protocol: Document 07/21/24 07:33 LRN (Rec: 07/21/24 08:17 LRN [id number]) OP-PT Subjective Patient Comments Patient Comments States she did the laying down w/hips up decreased pain from 3-4/10 from initial 8-9/10. Didn't use the medium sized wand, totally spaced it out. No stress incontinence. PT-OP-I Pelvic Floor Start: 01/11/24 17:27 Freq: Status: Active Protocol: Document 01/14/24 08:20 LRN (Rec: 01/14/24 09:02 LRN [id number]) Pelvic Floor Assessment Urine Other Urinary Symptoms None Bowel Bowel Movement Frequency 1/day [place] Stool Chart Comments Type 4 Pelvic Clock Pelvic Clock 12-3 Tenderness,Tightness Pelvic Clock 3-6 Tenderness,Tightness Pelvic Clock 6-9 Tenderness,Tightness Pelvic Clock 9-12 Tenderness,Tightness Pelvic Clock Other Redness at entire labia minora Prolapse Prolapse Comments Pt not able to tolerate digital palpation to assess for prolapse. Perineal Descent Resting Absent Bearing Absent Comments Pelvic Floor Comments Posterior PF assesment per anal sphincter palpation: Quick Contractions: 2 reps prior to fatigue. Long Hold contractions: Muscle endurance 2 secs. PT-OP-J Posture/Palpation/Skin Start: 01/11/24 17:27 Freq: Status: Active Protocol: Document 01/14/24 08:20 LRN (Rec: 01/14/24 09:02 LRN [id number]) Posture Evaluation Position Standing Head/C-Spine Posture Neutral Position T-Spine Posture Neutral L-Spine Posture Neutral Shoulder Posture Neutral Arm Posture (L) Neutral,(R) Neutral Pelvis Posture Anteriorly Tilted Weight Distribution Balanced Knee Posture (L) Neutral,(R) Neutral PT-OP-K Range of Motion Start: 01/11/24 17:27 Freq: Status: Active Protocol: Document 07/21/24 07:33 LRN (Rec: 07/21/24 08:17 LRN [id number]) Hip Goniometric Range of Motion Hip Right Passive Testing Position Supine Straight Leg Raise 70 Abduction 33 Internal Rotation 30 External Rotation 65 Left Passive Testing Position Supine Straight Leg Raise 70 Abduction 35 Internal Rotation 22 External Rotation 65 PT-OP-M Strength Start: 01/11/24 17:27 Freq: Status: Active Protocol: Document 01/14/24 08:20 LRN (Rec: 01/14/24 09:02 LRN [id number]) Trunk Strength Trunk Manual Muscle Testing Core Stabilization Mild trunk rotation weakness demonstrated with LE MMT. Hip Strength Hip Manual Muscle Testing Right Comments LE strength is 5/5 Left External Rotation 4+ Good+ Comments LE strength is 5/5 except as indicated above. PT-OP-T Assessment and Plan Start: 01/11/24 17:27 Freq: Status: Active Protocol: Document 07/21/24 16:52 LRN (Rec: 07/21/24 17:00 LRN [id number]) Physical Therapy Assessment Goals Three Impairment Decreased posterior PF endurance of anal sphincter contraction (2 sec hold) Short Term Goal (STG) Pt will be educated in posterior PF strengthening ex' s to hold an anal sphincter contraction 5 secs prior to fatigue. 04/07/24: Kegel/Bridge long hold and quick contractions w/ focus on relaxation after strengthening. 07/11/24: Pt feels she is able to hold her PF contraction for 5 secs. STG Duration 05/19/24 (07/11/24: MET GOAL) Photoengraving Machine Operator/Tender Goal (LTG) Pt will be able to hold an anal sphincter contraction 10 secs prior to fatigue. 07/21/24: Pt deferred asessing today due to GI upset . LTG Duration 10/31/24 Two Impairment Pain with intercourse Short Term Goal (STG) And will demonstrate awareness of how to relax her PF with deep breathing. 01/21/24: Training to relax PF with inhale of Deep Breathing. 02/11/24: Further training for reverse Kegel with breath during exercise. 04/07/24: Pt noting deep breathing was found to be helpful in reducing deep thrust pain, but pain present. 05/09/24: Pt able to relax her PF w/deep breathing and can feel the PF relax. STG Duration 05/19/24 (05/09/24: MET GOAL) Usp Goal (LTG) Pt will be able to tolerate intercourse with spouse with minimal (2/10) to no pain. 02/11/24: Less pain with intercourse if stretching PF first. 03/03/24: Pain only with deep thrust, not with orgasm. 05/08/24: Least amount of pain she has had the last time of intercourse, pain 6/10 vs 9/10. 07/21/24: Pain with intercourse (tried once) was 3 -4/10. LTG Duration 10/31/24 (07/21/24: Improved , not met goal) One Impairment Pt lacks appropriate self care HEP Short Term Goal (STG) Pt will be educated in genital and vulvar self care. 03/03/24: Pt educated in genital and vulvar self care. STG Duration 01/28/24 (03/03/24: MET GOAL) Photoengraving Machine Operator/Tender Goal (LTG) Pt will be independent in appropriate self care HEP of PF, hip & trunk stretches, and she will be able to self stretch her PF using a wand. 01/21/24: Pt issued XS wand for home PF stretching, and instructed in deep breathing. 01/28/24: HEP issued: Happy Baby Pose, Sphinx abdominal stretch and SL hip AD stretch. 02/11/24: HEP: Trunk rot & SB stretch 03/03/24: HEP: Child's Pose for LB/abdominal stretch. I/S pt in self MFR of abdomen, hip/abdominal/LB stretching, breath w/transfers; intercourse hips elevated. 04/07/24: I/S Tower Loader Operator PF strengthening: Kegel w/Bridge 10 SH and quick reps. 04/14/24: I/S pt in neck rot/ ext stretch and vocalization for vagal n stim. 04/28/24: Issued handout for sexual activity positioning to try for orthopedic considerations w/verbal discussion of differing her or her partner position. 05/09/24: HEP: Modified [place] for Deep hip ER stretch and Floor V-sit for hip AD stretch. Pt to get miracle balls for Obturator internus stretching. 07/11/24: Pt I/S in HEP: Laying Pillows under hips for 10' 1-2x/night for PF stretching/MFR and using relaxation techniques of deep breathing and mindfulness. Added today cervical positioining for vagus n. stim to help promote parasympathetic stim. 07/21/24: Pt to focus on improving L hip IR & hamstring mobility Hip ER symmetrical with measurement, but felt tight on R hip. I/S pt in vagus nerve positional stretch today for R side and then to do both while doing PF positional stretch. LTG Duration 10/31/24 (07/11/24: progressed). Assessment Summary Assessment Pt is a 33 yo female with pelvic pain during intercourse w/deep thrust and initially with anal spincter endurance weakness. + response to vagus n stretching after last session with pt more relaxed afterwards. Today she demonstrated hip left IR & yulia hamstrings tightness compared to opp side; hip R ER is mildly tight. Her pain with intercourse is less with a HEP stretch using gravity to assist stretch (laying supine, hips on pillows). The pt's insurance coverage ends in couple days; therefore the pt has choosen to discharge from therapy to her HEP as she feels confident to continue on her own. Physical Therapy Plan Discharge Physical Therapy Discharge Comments The pt's insurance coverage ends 07/23/24; therefore the pt is choosing to be discharged from therapy. Pt made good progress, but her pain was not fully resolved; therefore further therapy in the future would be appropriate.
== END 2024-07-31 15:03 | disposition home or self-care (01) ==
LOC: PHYS 07:30
PROVIDERS: Family Provider Student in an Organized Health Care Education/Training Program; PCP Student in an Organized Health Care Education/Training Program; Referring Provider Student in an Organized Health Care Education/Training Program; Visit Provider Student in an Organized Health Care Education/Training Program
DX: N94.10 Unspecified dyspareunia (principal)
CPT/HCPCS: 97110; 97112; 97140; 97161; 97535